=== PATIENT | female | born 1955 | race American Indian/Alaskan Native ===

== ENCOUNTER 2017-09-12 10:20 | Outpatient (CLI) | payer MEDICAID ==
--- NOTE | 2017-09-12 11:36 | XRay Report ---
BILATERAL ANKLES, 3 VIEWS History: Injury, pain. Findings: There is borderline osteopenia. No evidence for acute osseous injury, bone lesion or joint pathology. The soft tissues are unremarkable. Impression: Borderline osteopenia. No acute osseous injury identified.
== END 2017-09-12 10:21 | disposition home or self-care (01) ==
LOC: XRAY 10:20
PROVIDERS: ATTEND Podiatrist
DX: S99.911A Unspecified injury of right ankle, initial encounter (principal); X58.XXXA Exposure to other specified factors, initial encounter; Y93.89 Activity, other specified; Y92.89 Other specified places as the place of occurrence of the external cause; Y99.8 Other external cause status

== ENCOUNTER 2018-02-03 21:47 | Emergency (ER) | payer MEDICAID ==
[2018-02-03] MEDS ORDERED: NEURONTIN PO ONE (22:07)
[2018-02-03] MEDS ORDERED: DELTASONE PO ONE (22:07)
[2018-02-03] MEDS ORDERED: NORCO 5/325 PO ONE (22:08)
[2018-02-03] MEDS ORDERED: VALIUM PO ONE (22:08)
[2018-02-03 22:15] VITALS: BP 149/76
--- NOTE | 2018-02-03 22:21 | Emergency Department Report ---
ED General Adult HPI - General Chief complaint: Extremity Injury, Lower Stated complaint: LEG AND FEET PAIN Time Seen by Provider: 02/03/18 22:06 Source: patient Mode of arrival: Stretcher Limitations: No Limitations - History of Present Illness Initial comments: One week ago, patient had a mechanical fall while at home. She had no loss of consciousness and did not hit her head. Ever since, patient has had worsening pain in her bilateral lower back that radiates down into both legs. The pain is so bad that she can barely move. Patient normally uses a walker to get around. No incontinence symptoms. Not on blood thinners. - Related Data Home Medications Medication Instructions Recorded Confirmed Last Taken ALPRAZolam [Xanax TAB] 1 mg PO BID PRN 11/06/14 01/05/15 01/04/15 Acetaminophen/Codeine [Tylenol 1 tab PO Q12H PRN 11/06/14 01/05/15 01/04/15 /Codeine # 3 tab] Buspirone HCl [busPIRone] 15 mg PO BID 11/06/14 01/05/15 01/04/15 Cilostazol [Pletal] 100 mg PO BID 11/06/14 01/05/15 01/04/15 FLUoxetine [PROzac] 20 mg PO QDAY 11/06/14 01/05/15 01/04/15 Gemfibrozil [Lopid] 600 mg PO BID 11/06/14 01/05/15 01/04/15 Prednisone 10 mg PO DAILY 11/06/14 01/05/15 01/04/15 Trazodone HCl [traZODone] 150 mg PO QHS 11/06/14 01/05/15 01/04/15 predniSONE [Deltasone] 5 mg PO QDAY 11/06/14 01/05/15 01/04/15 Previous Rx's Medication Instructions Recorded Last Taken Type HYDROcodone/APAP 5-325 [Apison 1 each PO Q8H PRN #21 tablet 05/10/15 Unknown Rx 5/325] Gabapentin [Neurontin] 300 mg PO Q8HR #27 capsule 02/03/18 Unknown Rx Prednisone 10 mg PO DAILY #59 tab 02/03/18 Unknown Rx traMADol [Ultram 50 MG tab] 50 mg PO Q6HR PRN #6 tablet 08/07/18 Unknown Rx Allergies Allergy/AdvReac Type Severity Reaction Status Date / Time hydromorphone [From Dilaudid] Allergy Hives Verified 02/03/18 22:34 phenytoin sodium Allergy Hives Verified 10/29/14 14:05 [From Dilantin] phenytoin sodium extended Allergy Hives Verified 10/29/14 14:05 [From Dilantin] ED Review of Systems ROS: Stated complaint: LEG AND FEET PAIN Other details as noted in HPI Comment: All other systems reviewed and negative Constitutional: weakness Musculoskeletal: back pain, arthralgia, myalgia ED Past Medical Hx - Past Medical History Previous Medical History?: Yes Hx Hypertension: Yes Hx Arthritis: Yes (RA) Hx Asthma: Yes Additional medical history: 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 - Social History Smoking Status: Current Every Day Smoker Substance Use Type: None - Medications Home Medications: Home Medications Medication Instructions Recorded Confirmed Last Taken Type ALPRAZolam [Xanax TAB] 1 mg PO BID PRN 11/06/14 01/05/15 01/04/15 History Acetaminophen/Codeine [Tylenol 1 tab PO Q12H PRN 11/06/14 01/05/15 01/04/15 History /Codeine # 3 tab] Buspirone HCl [busPIRone] 15 mg PO BID 11/06/14 01/05/15 01/04/15 History Cilostazol [Pletal] 100 mg PO BID 11/06/14 01/05/15 01/04/15 History FLUoxetine [PROzac] 20 mg PO QDAY 11/06/14 01/05/15 01/04/15 History Gemfibrozil [Lopid] 600 mg PO BID 11/06/14 01/05/15 01/04/15 History Prednisone 10 mg PO DAILY 11/06/14 01/05/15 01/04/15 History Trazodone HCl [traZODone] 150 mg PO QHS 11/06/14 01/05/15 01/04/15 History predniSONE [Deltasone] 5 mg PO QDAY 11/06/14 01/05/15 01/04/15 History HYDROcodone/APAP 5-325 [Apison 1 each PO Q8H PRN #21 tablet 05/10/15 Unknown Rx 5/325] Gabapentin [Neurontin] 300 mg PO Q8HR #27 capsule 02/03/18 Unknown Rx Prednisone 10 mg PO DAILY #59 tab 02/03/18 Unknown Rx traMADol [Ultram 50 MG tab] 50 mg PO Q6HR PRN #6 tablet 02/03/18 Unknown Rx ED Physical Exam - General Limitations: No Limitations General appearance: alert, in no apparent distress - Head Head exam: Present: atraumatic, normocephalic - Eye Eye exam: Present: normal appearance - ENT ENT exam: Present: mucous membranes moist - Neck Neck exam: Present: normal inspection - Respiratory Respiratory exam: Present: normal lung sounds bilaterally. Absent: respiratory distress - Cardiovascular Cardiovascular Exam: Present: regular rate, normal rhythm. Absent: systolic murmur, diastolic murmur, rubs, gallop - GI/Abdominal GI/Abdominal exam: Present: soft, normal bowel sounds. Absent: distended, tenderness, guarding, rebound - Extremities Exam Extremities exam: Present: normal inspection, other (no saddle anesthesia. Gross bilateral LE strength 5/5. Bilateral feet are neurovasc intact. Ambulated into the room without help. Bilateral positive SLR test. ) - Back Exam Back exam: Present: normal inspection, other (diffuse midline and bilateral lumbar spinal tenderness) - Neurological Exam Neurological exam: Present: alert, oriented X3 - Psychiatric Psychiatric exam: Present: normal affect, normal mood - Skin Skin exam: Present: warm, dry, intact, normal color. Absent: rash ED Course Vital Signs 02/03/18 02/03/18 02/03/18 22:09 22:25 23:25 Temperature 98 F Pulse Rate 71 Respiratory 16 16 16 Rate Blood Pressure 149/76 Blood Pressure 149/76 [Right] O2 Sat by Pulse 97 Oximetry - Reevaluation(s) Reevaluation #1: CT shows no acute osseous process. There moderate disc degeneration in her spine. On re-eval, pt feels better. Will give her a referral to the [facility] for her chronic back pain. 02/04/18 00:41 ED Medical Decision Making - Medical Decision Making 60-year-old female with past medical history of rheumatoid arthritis that presents to the ER with subacute low back pain that is affecting both of her legs. Vital signs are stable. Patient is well-appearing. No appreciable neuro deficit and bilateral lower extremities. She is exhibiting no evidence of cauda equina at this time. CT of her lumbar spine was ordered to exclude fracture. Patient was given prednisone/Vicodin/Valium for pain control. Likely patient has suffered a lumbar back sprain with possible herniated disc that is contributing to bilateral sciatica. If the symptoms are improved on reevaluation, patient will be discharged with outpatient follow-up. - Differential Diagnosis fracture, disorientation, spinal cord stenosis, cauda equina, contusion Critical care attestation.: If time is entered above; I have spent that time in minutes in the direct care of this critically ill patient, excluding procedure time. ED Disposition Clinical Impression: Low back pain, Sciatica Disposition: TO HOME OR SELFCARE Is pt being admited?: No Does the pt Need Aspirin: No Condition: Stable Instructions: Lumbar Radiculopathy (ED) Additional Instructions: Please follow up with your family doctor or the [facility] in 3-5 days for re-evaluation of your back pain. You have also been referred to Dr. Jasso , orthopedics, who can discuss management options for your back. Prescriptions: Gabapentin [Neurontin] 300 mg PO Q8HR #27 capsule Prednisone 10 mg PO DAILY #59 tab traMADol [Ultram 50 MG tab] 50 mg PO Q6HR PRN #6 tablet PRN Reason: Pain Referrals: PRIMARY CAREMD [Referring] - 3-5 Days [facility] [Outside] - 3-5 Days DENNIS JASSO MD [Staff Physician] - 3-5 Days
--- NOTE | 2018-02-03 23:25 | Cat Scan Report ---
FINAL REPORT PROCEDURE: CT lumbar spine without contrast. TECHNIQUE: Computerized axial tomography of the lumbar spine was performed from T12 to the sacrum without contrast material. HISTORY: fall 1 week ago with midline back pain COMPARISON: No prior studies are available for comparison. FINDINGS: The lumbar vertebrae have normal height. There are no fractures. There is moderate disc space narrowing at L2-3. There is severe disc space narrowing at L4-5. There is some erosion and irregularity of the endplates at this level. There is grade 1 spondylolisthesis. There is severe osteoarthritis involving the facet joints. There is a moderate bony spinal canal stenosis. The L1-2, L3-4 and L5-S1 disc levels are unremarkable. There are no definite disc protrusions, although this is much better evaluated by MRI scanning. The paravertebral soft tissues are unremarkable. Incidental note is made of an enlarged, lobulated uterus which likely contains numerous leiomyomas. IMPRESSION: Fairly severe degenerative disease as described. Probable uterine leiomyomas.
== END 2018-02-04 00:56 | disposition home or self-care (01) ==
LOC: ED 21:47
DX: M54.40 Lumbago with sciatica, unspecified side (principal); I10 Essential (primary) hypertension; M19.90 Unspecified osteoarthritis, unspecified site; J45.909 Unspecified asthma, uncomplicated; F17.200 Nicotine dependence, unspecified, uncomplicated; Z88.8 Allergy status to other drugs, medicaments and biological substances; Z98.51 Tubal ligation status; W19.XXXA Unspecified fall, initial encounter; Y93.89 Activity, other specified; Y99.8 Other external cause status; Y92.019 Unspecified place in single-family (private) house as the place of occurrence of the external cause
CPT/HCPCS: 72131; 99283; J7512

== ENCOUNTER 2019-12-27 20:55 | Emergency (ER) | payer MEDICAID ==
--- NOTE | 2019-12-27 21:42 | Event Note ---
ED Screening Note Date of service: 12/27/19 Time: 21:41 ED Screening Note: Pt complains of right ankle pain she denies any injury or hx of gout hx of rheumatoid arthritis This initial assessment/diagnostic orders/clinical plan/treatment(s) is/are subject to change based on patients health status, clinical progression and re- assessment by fellow clinical providers in the ED. Further treatment and workup at subsequent clinical providers discretion. Patient/guardian urged not to elope from the ED as their condition may be serious if not clinically assessed and managed. Initial orders include: XR
--- NOTE | 2019-12-27 22:31 | XRay Report ---
RIGHT ANKLE 3 VIEWS 2205 INDICATION: pain, no injury COMPARISON: None available. FINDINGS: Mild diffuse soft tissue swelling is seen. No fractures or dislocations are noted. Signer Name: Bud Eaton MD Signed: 12/27/2019 10:26 PM Workstation Name: [id number]
--- NOTE | 2019-12-27 22:57 | Emergency Department Report ---
ED Lower Extremity HPI - General Chief Complaint: Extremity Injury, Lower Stated Complaint: RT ANKLE PAIN Time Seen by Provider: 12/27/19 21:39 Source: patient Mode of arrival: Ambulatory Limitations: Physical Limitation - History of Present Illness Initial Comments: 64-year-old -Italian female presents to the emergency room for sharp pain to the right ankle. Patient states when she walks he feels like her ankles is going to the other way. Patient states is very painful. 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 Patient does admit that she drinks beer and has been eating beef. MD Complaint: ankle injury Onset/Timin -: days(s) Injury: Ankle: Right (Pain with walking and touching) Severity: moderate Improves With: nothing Worsens With: weight bearing, movement, palpation Associated Symptoms: able to partially bear weight - Related Data Home Medications Medication Instructions Recorded Confirmed Last Taken Cholecalciferol (Vitd3)/Vit K2 [D3 1 tab PO DAILY 06/20/18 09/08/19 08/11/18 09:00 + K2 Dots 1,000 Units Tab] DULoxetine [Cymbalta] 60 mg PO BID 09/08/19 09/08/19 Unknown HYDROcodone/APAP 7.5-325 [Villas 1 tab PO TID PRN 09/08/19 09/08/19 Unknown 7.5-325 mg TAB] Omeprazole 40 mg PO DAILY 09/08/19 09/08/19 Unknown hydroCHLOROthiazide 25 mg PO DAILY 09/08/19 09/08/19 Unknown [Hydrochlorothiazide] tiZANidine [Zanaflex 4mg TAB] 4 mg PO QHS 09/08/19 09/08/19 Unknown Previous Rx's Medication Instructions Recorded Last Taken Type Amlodipine Besylate [Norvasc] 1 tab PO DAILY #30 tablet 06/22/18 08/11/18 09:00 Rx Allergies Allergy/AdvReac Type Severity Reaction Status Date / Time hydromorphone [From Dilaudid] Allergy Hives Verified 11/03/18 18:18 phenytoin sodium Allergy Hives Verified 11/03/18 18:18 [From Dilantin] phenytoin sodium extended Allergy Hives Verified 11/03/18 18:18 [From Dilantin] ED Review of Systems ROS: Stated complaint: RT ANKLE PAIN Other details as noted in HPI Comment: All other systems reviewed and negative ED Past Medical Hx - Past Medical History Previous Medical History?: Yes Hx Hypertension: Yes Hx Congestive Heart Failure: No Hx Diabetes: No Hx Liver Disease: Yes (HEP C) Hx Arthritis: Yes (RA) Hx Seizures: No (Has AR MANAGER shunt 1998. 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 AR MANAGER shunt - Surgical History Past Surgical History?: Yes Additional Surgical History: Tubal ligation. AR MANAGER shunt - Social History Smoking Status: Current Every Day Smoker Substance Use Type: Alcohol - Medications Home Medications: Home Medications Medication Instructions Recorded Confirmed Last Taken Type Cholecalciferol (Vitd3)/Vit K2 [D3 1 tab PO DAILY 06/20/18 09/08/19 08/11/18 09:00 History + K2 Dots 1,000 Units Tab] Amlodipine Besylate [Norvasc] 1 tab PO DAILY #30 tablet 06/22/18 09/08/19 08/11/18 09:00 Rx DULoxetine [Cymbalta] 60 mg PO BID 09/08/19 09/08/19 Unknown History HYDROcodone/APAP 7.5-325 [Villas 1 tab PO TID PRN 09/08/19 09/08/19 Unknown History 7.5-325 mg TAB] Omeprazole 40 mg PO DAILY 09/08/19 09/08/19 Unknown History hydroCHLOROthiazide 25 mg PO DAILY 09/08/19 09/08/19 Unknown History [Hydrochlorothiazide] tiZANidine [Zanaflex 4mg TAB] 4 mg PO QHS 09/08/19 09/08/19 Unknown History ED Physical Exam - General Limitations: Physical Limitation General appearance: alert - Head Head exam: Present: atraumatic - Eye Eye exam: Present: normal appearance - ENT ENT exam: Present: mucous membranes moist - Neck Neck exam: Present: full ROM - Expanded Lower Extremity Exam Right Ankle exam: Present: full ROM, tenderness, swelling Foot/Toe exam: Present: tenderness, swelling Neuro vascular tendon exam: Present: no vascular compromise - Neurological Exam Neurological exam: Present: alert - Psychiatric Psychiatric exam: Present: normal affect, normal mood - Skin Skin exam: Present: warm, dry, intact, normal color. Absent: rash ED Course Vital Signs 12/27/19 23:46 Respiratory 18 Rate ED Lower Extremity MDM - Radiology Data Radiology results: report reviewed Referring Physician:MADDIE PETTITPatient Name:CASSIE VAZQUEZPatient ID:[id number] of :[id number]:FemaleAccession:[id number] Date:2019Report Status:Finalized Findings [address] [address] XRay Report Signed Patient: CASSIE VAZQUEZ MR#: [id number] : 1955 Acct:[id number] Age/Sex: 64 / F ADM Date: 12/27/19 Loc: ED Attending Dr: Ordering Physician: MADDIE PETTIT Date of Service: 12/27/19 Procedure(s): XR ankle 3+V RT Accession Number(s): [id number] cc: MADDIE PETTIT Fluoro Time In Minutes: RIGHT ANKLE 3 VIEWS 2205 INDICATION: pain, no injury COMPARISON: None available. FINDINGS: Mild diffuse soft tissue swelling is seen. No fractures or dislocations are noted. Signer Name: Bud Eaton MD Signed: 12/27/2019 10:26 PM Workstation Name: [id number] Transcribed By: GJ Dictated By: Bud Eaton MD Electronically Authenticated By: Bud Eaton MD Signed Date/Time: 12/27/192225 DD/ 25 TD/TT: Referring Physician:JAVIER SHERIFFPatient Name:CASSIE VAZQUEZPatient ID:[id number] of :[id number]:FemaleAccession:[id number] Date:1687-99-68Wmitro Status:Finalized Findings [address] [address] Vascular Lab Report Signed Patient: CASSIE VAZQUEZ MR#: [id number] : 1955 Acct:[id number] Age/Sex: 64 / F ADM Date: 12/27/19 Loc: ED Attending Dr: Ordering Physician: LISA ROLLE Date of Service: 12/27/19 Procedure(s): VL venous duplex LE RT Accession Number(s): [id number] cc: LISA ROLLE DUPLEX DOPPLER LOWER EXTREMITY VEINS, RIGHT INDICATION / CLINICAL INFORMATION: Pain swelling no pulse. TECHNIQUE: Duplex doppler imaging was performed through the veins of the right lower extremity using venous compression and other maneuvers. COMPARISON: None available. FINDINGS: RIGHT COMMON FEMORAL VEIN: Negative. RIGHT FEMORAL VEIN: Negative. RIGHT POPLITEAL VEIN: Negative. RIGHT CALF VEINS: Negative. ADDITIONAL FINDINGS: None. IMPRESSION: 1. No sonographic evidence for DVT in the right lower extremity. Signer Name: Jesse Thomas MD Signed: 12/28/2019 1:09 AM Workstation Name: [id number] Transcribed By: JOHN Dictated By: Jesse Thomas MD Electronically Authenticated By: Jesse Thomas MD Signed Date/Time: 12/28/19108 DD/ 8 TD/TT: - Medical Decision Making 64-year-old -Italian female presents to the emergency room for sharp pain to the right ankle. Patient states when she walks he feels like her ankles is going to the other way. Patient states is very painful. 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 Patient does admit that she drinks beer and has been eating beef. Dopplers are negative for any DVTs. Ankle-brachial index shows that she has moderate amount of arterial disease. Discussed with patient smoking for the last 51 years increases her chances of having arterial disease in her lower extremities as well as peripheral vascular disease. I discussed with patient that she needs to stop smoking increase her fluids. Patient is to follow-up with her primary care provider. Patient was given ibuprofen which is helped. Patient can take take Tylenol or ibuprofen for pain management. Critical care attestation.: If time is entered above; I have spent that time in minutes in the direct care of this critically ill patient, excluding procedure time. ED Disposition Clinical Impression: PAD (peripheral artery disease), Tobacco abuse, Chronic toe pain, right foot Disposition: DC-01 TO HOME OR SELFCARE Is pt being admited?: No Does the pt Need Aspirin: No Condition: Stable Additional Instructions: Stop smoking take Tylenol or ibuprofen as needed for pain management. Follow-up with your primary care provider. Referrals: PRIMARY CARE, [Primary Care Provider] - 3-5 Days
[2019-12-27] MEDS ORDERED: IBUPROFEN 600 MG TAB PO ONE (23:29)
--- NOTE | 2019-12-28 01:13 | Vascular Lab Report ---
DUPLEX DOPPLER LOWER EXTREMITY VEINS, RIGHT INDICATION / CLINICAL INFORMATION: Pain swelling no pulse. TECHNIQUE: Duplex doppler imaging was performed through the veins of the right lower extremity using venous comp ression and other maneuvers. COMPARISON: None available. FINDINGS: RIGHT COMMON FEMORAL VEIN: Negative. RIGHT FEMORAL VEIN: Negative. RIGHT POPLITEAL VEIN: Negative. RIGHT CALF VEINS: Negative. ADDITIONAL FINDINGS: None. IMPRESSION: 1. No sonographic evidence for DVT in the right lower extremity. Signer Name: Jesse Thomas MD Signed: 12/28/2019 1:09 AM Workstation Name: [email or web address]
[2019-12-28 02:37] VITALS: BP 98/57
== END 2019-12-28 02:46 | disposition home or self-care (01) ==
LOC: ED 20:55
DX: I73.89 Other specified peripheral vascular diseases (principal); M79.671 Pain in right foot; M79.674 Pain in right toe(s); G89.29 Other chronic pain; F19.10 Other psychoactive substance abuse, uncomplicated

== ENCOUNTER 2020-03-31 17:00 | Emergency (ER) | payer MEDICAID ==
--- NOTE | 2020-03-31 18:39 | Emergency Department Report ---
ED Psych HPI - General Chief Complaint: Psych Stated Complaint: PSYCH EVAL Time Seen by Provider: 03/31/20 18:33 Source: family, police, EMS Mode of arrival: Stretcher Limitations: No Limitations - History of Present Illness Initial Comments: Is a 64-year-old female that presents emergency room with complaints of agitation, bizarre behavior. Patient at this time is answering questions properly and is calm. Patient denies suicidal homicidal ideation. Patient denies being destructive to the property or having bizarre behavior. Patient was brought in by EMS. EMS states that the police were called to the family's residence since the patient was acting bizarre and destroying property. The police then decided to have the patient to have a mental health evaluation. The police then called EMS to transfer the patient to the hospital. Report received from EMS. Patient denies recent travel. Patient denies recent international travel. Patient denies exposure to the novel coronavirus. Patient denies sick contacts. Patient denies fever and chills. Patient denies cough. Patient denies diarrhea. Patient denies coming in contact with anybody with symptoms of the novel coronavirus. History of same: No Quality: resolved prior to arrival Improves With: none Worsens With: none Associated Symptoms: denies: confusion, headache, shortness of breath, nausea, vomiting, syncope, insomnia Treatments Prior to Arrival: placed on mental he - Related Data Home Medications Medication Instructions Recorded Confirmed Last Taken Cholecalciferol (Vitd3)/Vit K2 [D3 1 tab PO DAILY 06/20/18 01/11/20 01/11/20 + K2 Dots 1,000 Units Tab] DULoxetine [Cymbalta] 60 mg PO BID 09/08/19 01/11/20 01/11/20 Omeprazole 40 mg PO DAILY 09/08/19 01/11/20 Unknown hydroCHLOROthiazide 25 mg PO DAILY 09/08/19 01/11/20 01/10/20 [Hydrochlorothiazide] tiZANidine [Zanaflex 4mg TAB] 4 mg PO QHS 09/08/19 01/11/20 01/10/20 Previous Rx's Medication Instructions Recorded Last Taken Type Amlodipine Besylate [Norvasc] 1 tab PO DAILY #30 tablet 06/22/18 01/10/20 Rx HYDROcodone/APAP 7.5-325 [[place] 1 tab PO TID PRN #20 01/14/20 Unknown Rx 7.5-325 mg TAB] Potassium Chloride [K-Dur] 20 meq PO DAILY 30 Days #30 tab 03/31/20 Unknown Rx Allergies Allergy/AdvReac Type Severity Reaction Status Date / Time hydromorphone [From Dilaudid] Allergy Hives Verified 01/10/20 14:28 phenytoin sodium Allergy Hives Verified 01/10/20 14:28 [From Dilantin] phenytoin sodium extended Allergy Hives Verified 01/10/20 14:28 [From Dilantin] ED Review of Systems ROS: Stated complaint: PSYCH EVAL Other details as noted in HPI Constitutional: denies: chills, fever Eyes: denies: eye pain, eye discharge, vision change ENT: denies: ear pain, throat pain Respiratory: denies: cough, shortness of breath, wheezing Cardiovascular: denies: chest pain, palpitations Endocrine: no symptoms reported Gastrointestinal: denies: abdominal pain, nausea, diarrhea Genitourinary: denies: urgency, dysuria, discharge Musculoskeletal: denies: back pain, joint swelling, arthralgia Skin: denies: rash, lesions Neurological: denies: headache, weakness, paresthesias Psychiatric: as per HPI. denies: anxiety, depression Hematological/Lymphatic: denies: easy bleeding, easy bruising ED Past Medical Hx - Past Medical History Previous Medical History?: Yes Hx Hypertension: Yes Hx Congestive Heart Failure: No Hx Diabetes: No Hx Deep Vein Thrombosis: No Hx Liver Disease: Yes (HEP C) Hx Arthritis: Yes (RA) Hx Seizures: No (Has [employer]NAGER shunt 1998. 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 [employer] MANAGER shunt - Surgical History Past Surgical History?: Yes Hx Coronary Stent: Yes Hx Pacemaker: No Hx Internal Defibrillator: No Additional Surgical History: Tubal ligation. [employer]NAGER shunt - Family History Family history: no significant - Social History Smoking Status: Current Every Day Smoker Substance Use Type: None - Medications Home Medications: Home Medications Medication Instructions Recorded Confirmed Last Taken Type Cholecalciferol (Vitd3)/Vit K2 [D3 1 tab PO DAILY 06/20/18 01/11/20 01/11/20 History + K2 Dots 1,000 Units Tab] Amlodipine Besylate [Norvasc] 1 tab PO DAILY #30 tablet 06/22/18 01/11/20 01/10/20 Rx DULoxetine [Cymbalta] 60 mg PO BID 09/08/19 01/11/20 01/11/20 History Omeprazole 40 mg PO DAILY 09/08/19 01/11/20 Unknown History hydroCHLOROthiazide 25 mg PO DAILY 09/08/19 01/11/20 01/10/20 History [Hydrochlorothiazide] tiZANidine [Zanaflex 4mg TAB] 4 mg PO QHS 09/08/19 01/11/20 01/10/20 History HYDROcodone/APAP 7.5-325 [[place] 1 tab PO TID PRN #20 01/14/20 Unknown Rx 7.5-325 mg TAB] Potassium Chloride [K-Dur] 20 meq PO DAILY 30 Days #30 tab 03/31/20 Unknown Rx ED Physical Exam - General Limitations: No Limitations General appearance: alert, in no apparent distress - Head Head exam: Present: atraumatic, normocephalic - Eye Eye exam: Present: normal appearance - ENT ENT exam: Present: mucous membranes moist - Neck Neck exam: Present: normal inspection - Respiratory Respiratory exam: Present: normal lung sounds bilaterally. Absent: respiratory distress - Cardiovascular Cardiovascular Exam: Present: regular rate, normal rhythm. Absent: systolic murmur, diastolic murmur, rubs, gallop - GI/Abdominal GI/Abdominal exam: Present: soft, normal bowel sounds - Extremities Exam Extremities exam: Present: normal inspection - Back Exam Back exam: Present: normal inspection - Neurological Exam Neurological exam: Present: alert, oriented X3 - Psychiatric Psychiatric exam: Present: normal affect, normal mood - Skin Skin exam: Present: warm, dry, intact, normal color. Absent: rash ED Course Vital Signs 03/31/20 03/31/20 03/31/20 17:46 20:00 20:25 Temperature 96.8 F L 97.9 F Pulse Rate 100 H 60 Respiratory 18 16 18 Rate Blood Pressure 123/74 Blood Pressure 115/75 [Right] O2 Sat by Pulse 96 99 Oximetry - Reevaluation(s) Reevaluation #1: Patient placed on ER hold. Patient will be evaluated by our mental health. Pat ient will have labs. Patient answering all questions appropriately. Patient is pleasant. Patient agrees to stay in the ER for medical evaluation. 03/31/20 18:40 Reevaluation #2: Patient is stable. Patient remains pleasant. Patient has not had any behavioral issues in the ER. Will be evaluated by mental health. 03/31/20 20:01 Reevaluation #3: CT is negative. Patient is now medically cleared. Patient will remain in the ER until the patient is fully evaluated by mental health. Patient's final disposition will come from our mental health psychiatry team. 03/31/20 22:12 Reevaluation #4: Patient has been cleared from a psychiatric standpoint by the mental health team. Patient is stable for discharge. Patient be discharged home. Patient has been pleasant the entire time in ER. Patient has not had any agitation or altered mental status in the ER. Patient will be discharged home. I discussed all results and clinical findings with patient. I discussed plan of care with patient. Patient agrees with plan of care. Patient is stable for discharge. Patient will be discharged home. Patient given discharge instructions. Patient voiced understanding of discharge instructions. 03/31/20 23:42 ED Medical Decision Making - Lab Data Result diagrams: 03/31/20 18:15 03/31/20 18:15 - Radiology Data Radiology results: report reviewed CT head/brain wo con INDICATION / CLINICAL INFORMATION: 64 years Female; AMS. TECHNIQUE: Routine CT head without contrast. All CT scans at this location are performed using CT dose reduction for ALARA by means of automated exposure control. COMPARISON: The study is compared to the previous CT of 06/20/2018. FINDINGS: BRAIN / INTRACRANIAL CONTENTS: The patient remains status post right frontotemporal craniotomy with aneurysm clips in the region of the right MCA trifurcation. There is notable resulting streak artifact and the findings correlate with the previous CT. The left frontal ventricular shunt remains in place with the distal tip projected within the left frontal horn. The ventricular system remains decompressed there also appears correlate with the prior exam. There is also component of motion artifact. 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 However, this finding does appear to developed from the previous CT and correlation would be needed. There is no clear CT evidence of acute intracranial hemorrhage or developing mass effect. ORBITS: No significant abnormality of visualized orbits. SINUSES / MASTOIDS: No significant abnormality in the visualized paranasal sinuses or mastoid air cells. CRANIOCERVICAL JUNCTION: No significant abnormality. ADDITIONAL FINDINGS: None. IMPRESSION: 1. The left frontal ventricular shunt remains in place with continued decompression of the ventricular system. 2. There is persistent right frontotemporal craniotomy with aneurysm clip the region of the right MCA trifurcation. 3. 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 However, this finding appears to developed from the previous CT of 06/20/2018 and correlation would be needed. 4. There is no CT evidence of acute intracranial hemorrhage. - Medical Decision Making Patient is a 64-year-old female that presents emergency room for a mental health evaluation. Patient was brought in by EMS and sent here by the police. EMS states that the patient had bizarre and erratic behavior and was destroying the family's property. Patient has been pleasant and has not had any behavioral issues in the ER. Patient has had normal mentation since being in the ER. Patient denies any psychiatric problems. Patient denies depression. Patient denies hallucinations. Patient denies suicidal homicidal ideation. Patient had labs done. Patient's labs exacerbate dehydration and hypokalemia. Patient had a head CT which was negative. Patient is stable to be discharged from a psychiatric and medical standpoint. Patient was cleared by our mental health team. Patient is medically cleared in the ER. Patient not require any inpatient psychiatric or inpatient medical services. Patient does not require further emergency medical services. Patient will be discharged home. - Differential Diagnosis Altered mental status, agitation, behavioral issues, electrolyte imbalance Critical care attestation.: If time is entered above; I have spent that time in minutes in the direct care of this critically ill patient, excluding procedure time. ED Disposition Clinical Impression: Agitation, Hypokalemia Altered mental state Qualifiers: Altered mental status type: unspecified Qualified Code(s): R41.82 - Altered mental status, unspecified Disposition: DC-01 TO HOME OR SELFCARE Is pt being admited?: No Does the pt Need Aspirin: No Condition: Stable Instructions: Altered Mental Status (ED), Hypokalemia (ED) Additional Instructions: Patient to follow-up with primary care in 2 to 3 days. Patient to follow-up with psychiatrist in 2 to 3 days. Patient to rest. Patient to increase water. . Patient to take Tylenol or ibuprofen as needed for pain. Patient continue previous medications.. Patient to return to the ER if condition worsens, changes or new symptoms arise. Patient will need her chemistry recheck in 2 to 3 days by her primary care. OUTPATIENT MENTAL HEALTH RESOURCES [facility], [facility] Vonda Johnston MD: [address] [facility] [address] [place] [address] [place] [address] [facility]: [employer] [address] [place] [address] [place] [address] [phone] [facility]: [address] [facility] [address] [facility] [place] [address] [facility] [address] [facility]: Maverick Knight MD: [address] [facility] [address] [facility] [id number] [facility]: [address], [place] [id number] [phone] [place] CRISIS AND ACCESS LINE: Prescriptions: Potassium Chloride [K-Dur] 20 meq PO DAILY 30 Days #30 tab Referrals: PRIMARY CAREMD [Primary Care Provider] - 2-3 Days Time of Disposition: 23:46
[2020-03-31 18:45] LABS: Hematocrit 36.4 % (30.3-42.9); Hemoglobin 11.3 gm/dl (10.1-14.3); Mean Corpuscular HGB Conc 31 % (30-34); Mean Corpuscular Volume 80 fl (79-97); Platelet Count 290 K/mm3 (140-440); Red Blood Count 4.57 M/mm3 (3.65-5.03)
[2020-03-31 18:53] LABS: Blood Urea Nitrogen 19 mg/dL (7-17); Calcium 9.2 mg/dL (8.4-10.2); Hemolysis Index 13
[2020-03-31 18:54] LABS: BUN/Creatinine Ratio 27
[2020-03-31 20:03] LABS: Anisocytosis 3+; Basophils % (Manual) 0 % (0.0-1.8); Hypochromasia 1+; Total Cells Counted 100
[2020-03-31 20:08] LABS: Poikilocytosis 1+
[2020-03-31 20:09] LABS: Burr Cells Rare; Large Platelets Rare; Platelet Estimate Consistent w Auto; Tear Drop Cells Rare
[2020-03-31] MEDS ORDERED: ACETAMINOPHEN 500 MG TAB ONE (20:23)
[2020-03-31] MEDS ORDERED: ACETAMINOPHEN 500 MG TAB PO ONE (20:24)
[2020-03-31 20:35] VITALS: BP 115/75
[2020-03-31 21:47] LABS: Bilirubin,Urine NEG (Negative); Blood,Urine NEG (Negative); Color,Urine Yellow (Yellow); Mucus,Urine FEW /HPF; Protein,Urine <15 mg/dL mg/dL (Negative); WBC,Urine < 1.0 /HPF (0.0-6.0)
[2020-03-31 21:49] LABS: Amphetamine Screen,Urine PRESUMPTIVE NEGATIVE; Benzodiazepines Screen,Urine PRESUMPTIVE NEGATIVE; Cannabinoid Screen,Urine PRESUMPTIVE NEGATIVE; Cocaine Screen,Urine PRESUMPTIVE NEGATIVE; Methadone Screen,Urine PRESUMPTIVE NEGATIVE; Opiate Screen,Urine PRESUMPTIVE NEGATIVE
--- NOTE | 2020-03-31 22:14 | Cat Scan Report ---
CT head/brain wo con INDICATION / CLINICAL INFORMATION: 64 years Female; AMS. TECHNIQUE: Routine CT head without contrast. All CT scans at this location are performed using CT dos e reduction for ALARA by means of automated exposure control. COMPARISON: The study is compared to the previous CT of 06/20/2018. FINDINGS: BRAIN / INTRACRANIAL CONTENTS: The patient remains status post right frontotemporal craniotomy with a neurysm clips in the region of the right MCA trifurcation. There is notable resulting streak artifact and the findings correlate with the previous CT. The left frontal ventricular shunt remains in place with the distal tip projected within the left fro ntal horn. The ventricular system remains decompressed there also appears correlate with the prior ex am. There is also component of motion artifact. However, there appears be mild cerebral white matter dise ase most consistent with microvascular angiopathy. 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 However, this finding does appea r to developed from the previous CT and correlation would be needed. There is no clear CT evidence of acute intracranial hemorrhage or developing mass effect. ORBITS: No significant abnormality of visualized orbits. SINUSES / MASTOIDS: No significant abnormality in the visualized paranasal sinuses or mastoid air nayely ls. CRANIOCERVICAL JUNCTION: No significant abnormality. ADDITIONAL FINDINGS: None. IMPRESSION: 1. The left frontal ventricular shunt remains in place with continued decompression of the ventricula r system. 2. There is persistent right frontotemporal craniotomy with aneurysm clip the region of the right MCA trifurcation. 3. 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 However, this finding appears to developed from the previous CT of 06/20/2018 and corre lation would be needed. 4. There is no CT evidence of acute intracranial hemorrhage. Signer Name: Bonilla Cohen MD Signed: 03/31/2020 10:09 PM Workstation Name: [id number]
== END 2020-04-01 00:25 | disposition home or self-care (01) ==
LOC: ED 17:00
DX: E87.6 Hypokalemia (principal); R41.82 Altered mental status, unspecified; R45.1 Restlessness and agitation; I10 Essential (primary) hypertension; J44.9 Chronic obstructive pulmonary disease, unspecified; M19.90 Unspecified osteoarthritis, unspecified site; F17.200 Nicotine dependence, unspecified, uncomplicated; Z98.51 Tubal ligation status; Z95.5 Presence of coronary angioplasty implant and graft; Z88.8 Allergy status to other drugs, medicaments and biological substances; Z79.899 Other long term (current) drug therapy
CPT/HCPCS: 36415; 70450; 80048; 80307; 80320; 81001; 85007; 85025; G0480

== ENCOUNTER 2021-03-03 15:27 | Emergency (ER) | payer MEDICAID ==
[2021-03-03 15:40] VITALS: BP 109/62
--- NOTE | 2021-03-03 16:15 | Emergency Department Report ---
ED General Adult HPI - General Chief complaint: Pain General Stated complaint: BILATERAL KNEE PAIN Time Seen by Provider: 03/03/21 15:48 Source: patient, EMS Mode of arrival: Wheelchair Limitations: Physical Limitation - History of Present Illness Initial comments: 65-year-old -[place]ad[place] female presents to the emergency room stating that she has generalized pain in her back and lower legs. Patient reports that she has a history of rheumatoid arthritis and chronic pain and is followed by pain management provider. Patient states that she is ran out of her pain medication. Patient denies any recent injuries. Denies any urinary or bowel incontinence denies any IV use no recent back procedure. He is a chronic smoker. Has a history of medication overdose. Onset/Timin -: days(s) Location: back, lower extremity Severity scale (0 -10): 9 Quality: aching, sharp Consistency: intermittent Improves with: none Worsens with: none Associated Symptoms: denies other symptoms Treatments Prior to Arrival: none - Related Data Home Medications Medication Instructions Recorded Confirmed Last Taken Cholecalciferol (Vitd3)/Vit K2 [D3 1 tab PO DAILY 06/20/18 01/11/20 01/11/20 + K2 Dots 1,000 Units Tab] DULoxetine [Cymbalta] 60 mg PO BID 09/08/19 01/11/20 01/11/20 Omeprazole 40 mg PO DAILY 09/08/19 01/11/20 Unknown hydroCHLOROthiazide 25 mg PO DAILY 09/08/19 01/11/20 01/10/20 [Hydrochlorothiazide] tiZANidine [Zanaflex 4mg TAB] 4 mg PO QHS 09/08/19 01/11/20 01/10/20 Previous Rx's Medication Instructions Recorded Last Taken Type Amlodipine Besylate [Norvasc] 1 tab PO DAILY #30 tablet 06/22/18 01/10/20 Rx HYDROcodone/APAP 7.5-325 [[place] 1 tab PO TID PRN #20 01/14/20 Unknown Rx 7.5-325 mg TAB] Potassium Chloride [K-Dur] 20 meq PO DAILY 30 Days #30 tab 03/31/20 Unknown Rx Naproxen 375 mg PO BID PRN #20 tablet. 03/03/21 Unknown Rx traMADoL [Ultram 50 MG tab] 50 mg PO Q6HR PRN #12 tablet 03/03/21 Unknown Rx Allergies Allergy/AdvReac Type Severity Reaction Status Date / Time phenytoin sodium Allergy Hives Verified 03/03/21 15:33 [From Dilantin] phenytoin sodium extended Allergy Hives Verified 03/03/21 15:33 [From Dilantin] ED Review of Systems ROS: Stated complaint: BILATERAL KNEE PAIN Other details as noted in HPI Comment: All other systems reviewed and negative ED Past Medical Hx - Past Medical History Hx Hypertension: Yes Hx Congestive Heart Failure: No Hx Diabetes: No Hx Deep Vein Thrombosis: No Hx Liver Disease: Yes (HEP C) Hx Arthritis: Yes (RA) Hx Seizures: No (Has [employer] shunt 1998. 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 [employer] shunt - Surgical History Hx Coronary Stent: Yes Hx Pacemaker: No Hx Internal Defibrillator: No Additional Surgical History: Tubal ligation. [employer] shunt - Social History Smoking Status: Current Every Day Smoker Substance Use Type: None - Medications Home Medications: Home Medications Medication Instructions Recorded Confirmed Last Taken Type Cholecalciferol (Vitd3)/Vit K2 [D3 1 tab PO DAILY 06/20/18 01/11/20 01/11/20 History + K2 Dots 1,000 Units Tab] Amlodipine Besylate [Norvasc] 1 tab PO DAILY #30 tablet 06/22/18 01/11/20 01/10/20 Rx DULoxetine [Cymbalta] 60 mg PO BID 09/08/19 01/11/20 01/11/20 History Omeprazole 40 mg PO DAILY 09/08/19 01/11/20 Unknown History hydroCHLOROthiazide 25 mg PO DAILY 09/08/19 01/11/20 01/10/20 History [Hydrochlorothiazide] tiZANidine [Zanaflex 4mg TAB] 4 mg PO QHS 09/08/19 01/11/20 01/10/20 History HYDROcodone/APAP 7.5-325 [[place] 1 tab PO TID PRN #20 01/14/20 Unknown Rx 7.5-325 mg TAB] Potassium Chloride [K-Dur] 20 meq PO DAILY 30 Days #30 tab 03/31/20 Unknown Rx Naproxen 375 mg PO BID PRN #20 tablet. 03/03/21 Unknown Rx traMADoL [Ultram 50 MG tab] 50 mg PO Q6HR PRN #12 tablet 03/03/21 Unknown Rx ED Physical Exam - General Limitations: Physical Limitation General appearance: alert, in no apparent distress - Head Head exam: Present: atraumatic, normocephalic - Eye Eye exam: Present: normal appearance - ENT ENT exam: Present: normal external ear exam - Neck Neck exam: Present: full ROM - Respiratory Respiratory exam: Present: normal lung sounds bilaterally. Absent: chest wall tenderness, accessory muscle use - Cardiovascular Cardiovascular Exam: Present: regular rate - Extremities Exam Extremities exam: Present: full ROM, tenderness, other (Bilateral heels are soft, ankles and feet are tender). Absent: pedal edema - Back Exam Back exam: Present: paraspinal tenderness - Neurological Exam Neurological exam: Present: alert, oriented X3 - Psychiatric Psychiatric exam: Present: normal affect, normal mood - Skin Skin exam: Present: warm, dry, intact, normal color. Absent: rash ED Course Vital Signs 03/03/21 15:38 Temperature 97.8 F Pulse Rate 77 Respiratory 18 Rate Blood Pressure 109/62 O2 Sat by Pulse 96 Oximetry ED Medical Decision Making - Medical Decision Making 65-year-old -[place] female presents to the emergency room stating that she has generalized pain in her back and lower legs. Patient reports that she has a history of rheumatoid arthritis and chronic pain and is followed by pain management provider. Patient states that she is ran out of her pain medication. Patient denies any recent injuries. Denies any urinary or bowel incontinence denies any IV use no recent back procedure. He is a chronic smoker. Has a history of medication overdose. Review of [employer]a awareness [employer] patient last received narcotics on 01/04/2021 for 30 days. Patient be given a prescription for naproxen and tramadol. Patient is referred back to her primary pain management provider. Critical care attestation.: If time is entered above; I have spent that time in minutes in the direct care of this critically ill patient, excluding procedure time. ED Disposition Clinical Impression: PAD (peripheral artery disease), Rheumatoid arthritis Disposition: HOME / SELF CARE / HOMELESS Is pt being admited?: No Does the pt Need Aspirin: No Condition: Stable Instructions: Peripheral Vascular Disease, [id number] Additional Instructions: Take medication as prescribed. Increase your fluid intake. Do not operate heavy machinery while taking tramadol. Prescriptions: Naproxen 375 mg PO BID PRN #20 tablet. PRN Reason: Pain , Severe (7-10) traMADoL [Ultram 50 MG tab] 50 mg PO Q6HR PRN #12 tablet PRN Reason: Pain Referrals: Your, pain management provider [Other] - 3-5 Days
== END 2021-03-03 16:32 | disposition home or self-care (01) ==
LOC: ED 15:27
DX: I73.9 Peripheral vascular disease, unspecified (principal); M06.9 Rheumatoid arthritis, unspecified; I10 Essential (primary) hypertension; B19.20 Unspecified viral hepatitis C without hepatic coma; R56.9 Unspecified convulsions; J45.909 Unspecified asthma, uncomplicated; Z98.890 Other specified postprocedural states; F17.200 Nicotine dependence, unspecified, uncomplicated; Z88.8 Allergy status to other drugs, medicaments and biological substances
CPT/HCPCS: 99283

== ENCOUNTER 2021-11-17 12:41 | Inpatient (IN) | payer MEDICAID ==
--- NOTE | 2021-11-17 13:30 | Emergency Department Report ---
ED Shortness of Breath HPI - General Chief Complaint: Dyspnea/Respdistress Stated Complaint: ROSALINDA Time Seen by Provider: 11/17/21 13:11 Source: patient, old records reviewed Mode of arrival: Ambulatory Limitations: No Limitations - History of Present Illness Initial Comments: 66-year-old female CAD, COPD (no home O2), PVD, hepatitis C, current daily smok er, LARRY OPERATOR shunt s/p aneurysm repair (1998) A. fib (on Eliquis), daily tobacco abuse, RA, HLD, CHF (EF 30-35%), HTN, GERD, and chronic pain presents to the hospital with sob since this am. Pt is drowsy but easily arousable. When she is awake she is complaining of constant b/l leg pain secondary to PAD and continue smoking. Pt is a very poor historian. She complains mild chest pain. Initial BP at beside during exam is 100/54 (significanlty different than the 190/155 documented by triage). 100% room air sat. As per previous medical record review patient was admitted here in August for acute encephalopathy, dehydration causing acute renal injury, hypotension, and anemia requiring blood transfusion. - Related Data Home Medications Medication Instructions Recorded Confirmed Last Taken ALBUTEROL NEB's [Proventil 0.083% 2.5 mg IH TID PRN 09/22/21 09/25/21 Unknown NEBS] Apixaban [Eliquis] 5 mg PO BID 09/22/21 09/25/21 Unknown Atorvastatin Calcium [Lipitor] 80 mg PO QHS 09/22/21 09/25/21 Unknown Gabapentin [Neurontin] 800 mg PO TID 09/22/21 09/25/21 Unknown Ipratropium/Albuterol Sulfate 1 ampul IH Q6HR PRN 09/22/21 09/25/21 Unknown [DUONEB *Not for PRN Use*] Pantoprazole Sodium 40 mg PO DAILY 09/22/21 09/25/21 Unknown carvediloL [Coreg] 3.125 mg PO BID 09/22/21 09/25/21 Unknown DULoxetine [Cymbalta] 30 mg PO QDAY 09/25/21 09/25/21 Unknown Lisinopril [Zestril TAB] 2.5 mg PO QDAY 09/25/21 09/25/21 Unknown Previous Rx's Medication Instructions Recorded Last Taken Type AtorvaSTATin [Lipitor] 40 mg PO QHS #30 tablet 09/27/21 Unknown Rx Clopidogrel [Plavix] 75 mg PO QDAY #30 09/27/21 Unknown Rx Isosorb Dinit/Hydralazine [Bidil 1 each PO Q8HR #90 tablet 09/27/21 Unknown Rx 20/37.5MG] Pantoprazole [Protonix TAB] 40 mg PO BIDAC tablet 09/27/21 Unknown Rx carvediloL [Coreg] 3.125 mg PO BID #60 tablet 09/27/21 Unknown Rx Allergies Allergy/AdvReac Type Severity Reaction Status Date / Time phenytoin sodium Allergy Hives Verified 09/25/21 13:32 [From Dilantin] phenytoin sodium extended Allergy Hives Verified 09/25/21 13:32 [From Dilantin] ED Review of Systems ROS: Stated complaint: ROSALINDA Other details as noted in HPI Comment: All other systems reviewed and negative ED Past Medical Hx - Past Medical History Previous Medical History?: Yes Hx Hypertension: Yes Hx Congestive Heart Failure: Yes Hx Diabetes: No Hx Deep Vein Thrombosis: No Hx Liver Disease: Yes (HEP C) Hx Arthritis: Yes Hx Seizures: No (Has LARRY OPERATOR shunt 1998. 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 LARRY OPERATOR shunt - Surgical History Past Surgical History?: Yes Hx Coronary Stent: Yes Hx Pacemaker: No Hx Internal Defibrillator: No Additional Surgical History: Tubal ligation. LARRY OPERATOR shunt - Social History Smoking Status: Current Every Day Smoker - Medications Home Medications: Home Medications Medication Instructions Recorded Confirmed Last Taken Type ALBUTEROL NEB's [Proventil 0.083% 2.5 mg IH TID PRN 09/22/21 09/25/21 Unknown History NEBS] Apixaban [Eliquis] 5 mg PO BID 09/22/21 09/25/21 Unknown History Atorvastatin Calcium [Lipitor] 80 mg PO QHS 09/22/21 09/25/21 Unknown History Gabapentin [Neurontin] 800 mg PO TID 09/22/21 09/25/21 Unknown History Ipratropium/Albuterol Sulfate 1 ampul IH Q6HR PRN 09/22/21 09/25/21 Unknown History [DUONEB *Not for PRN Use*] Pantoprazole Sodium 40 mg PO DAILY 09/22/21 09/25/21 Unknown History carvediloL [Coreg] 3.125 mg PO BID 09/22/21 09/25/21 Unknown History DULoxetine [Cymbalta] 30 mg PO QDAY 09/25/21 09/25/21 Unknown History Lisinopril [Zestril TAB] 2.5 mg PO QDAY 09/25/21 09/25/21 Unknown History AtorvaSTATin [Lipitor] 40 mg PO QHS #30 tablet 09/27/21 Unknown Rx Clopidogrel [Plavix] 75 mg PO QDAY #30 09/27/21 Unknown Rx Isosorb Dinit/Hydralazine [Bidil 1 each PO Q8HR #90 tablet 09/27/21 Unknown Rx 20/37.5MG] Pantoprazole [Protonix TAB] 40 mg PO BIDAC tablet 09/27/21 Unknown Rx carvediloL [Coreg] 3.125 mg PO BID #60 tablet 09/27/21 Unknown Rx ED Physical Exam - General Limitations: No Limitations - Other Other exam information: General: Drowsy but aroused Head: Atraumatic Eyes: normal appearance ENT: Moist mucous membranes Neck: Normal appearance, no midline tenderness Chest: Clear to auscultation bilaterally, no respiratory CV: regular rate and rhythm Abdomen: Soft, normal bowel sounds, nontender, nondistended, no rebound or guarding Rectal: Brown stool Back: Normal inspection Extremity: Patient has dark discoloration to bilateral soles with diffuse pain/tenderness on palpation in feet and lower extremities. Superficial left leg anterior ulceration out signs of infection. No leg asymmetry or edema. Pedal pulses identified with Doppler Neuro: drowsy but arousable no facial asymmetry, difficult to understand, no gross motor sensory deficit Skin: No rash ED Course Vital Signs 11/17/21 11/17/21 11/17/21 12:45 13:10 13:15 Temperature Pulse Rate 75 52 L 67 Respiratory 16 13 11 L Rate Blood Pressure 96/50 Blood Pressure 190/155 [Left] O2 Sat by Pulse 98 99 Oximetry 11/17/21 11/17/21 11/17/21 13:31 13:45 14:01 Temperature Pulse Rate 73 73 63 Respiratory 12 13 10 L Rate Blood Pressure 100/54 100/54 100/54 Blood Pressure [Left] O2 Sat by Pulse 98 100 98 Oximetry 11/17/21 11/17/21 11/17/21 14:10 14:15 14:31 Temperature 98.7 F Pulse Rate 63 64 Respiratory 10 L 13 Rate Blood Pressure 100/54 100/54 Blood Pressure [Left] O2 Sat by Pulse 100 99 Oximetry 11/17/21 11/17/21 11/17/21 14:45 15:01 15:15 Temperature Pulse Rate 66 68 65 Respiratory 14 12 14 Rate Blood Pressure 100/54 100/54 100/54 Blood Pressure [Left] O2 Sat by Pulse 100 99 97 Oximetry 11/17/21 11/17/21 11/17/21 15:31 15:45 16:01 Temperature Pulse Rate 66 67 68 Respiratory 11 L 14 13 Rate Blood Pressure 100/54 100/54 100/54 Blood Pressure [Left] O2 Sat by Pulse 100 97 96 Oximetry 11/17/21 11/17/21 11/17/21 16:15 16:31 16:53 Temperature Pulse Rate 69 69 Respiratory 17 14 Rate Blood Pressure 100/54 100/54 100/54 Blood Pressure [Left] O2 Sat by Pulse 95 96 100 Oximetry 11/17/21 11/17/21 17:01 17:15 Temperature Pulse Rate 66 72 Respiratory 10 L 12 Rate Blood Pressure 100/54 100/54 Blood Pressure [Left] O2 Sat by Pulse 99 100 Oximetry - Reevaluation(s) Reevaluation #1: 11/17/21 17:01 Patient now more alert and no longer screaming in pain. She does not recall me examining her earlier in her ED stay. She states she takes oxycodone 7.5 mg (unsure if the med is Percocet) and states she might of just taken 1 today patient states her son gives her her medications to make sure she does not take too much. She is now requesting for something to eat. She states her speech is at her baseline. - Consultations Consultation #1: 11/17/21 18:07 case d/w Dr Martinez with GI, will consult ED Medical Decision Making - Lab Data Result diagrams: 11/17/21 15:00 11/17/21 15:00 Lab Results 11/17/21 11/17/21 11/17/21 Range/Units 14:15 15:00 15:00 WBC 5.0 (4.5-11.0) K/mm3 RBC 2.60 L (3.65-5.03) M/mm3 Hgb 5.1 L* (10.1-14.3) gm/dl Hct 17.1 L* (30.3-42.9) % MCV 66 L (79-97) fl MCH 20 L (28-32) pg MCHC 30 (30-34) % RDW 18.2 H (13.2-15.2) % Plt Count 196 (140-440) K/mm3 Lymph % (Auto) 17.8 (13.4-35.0) % [place] % (Auto) 7.7 H (0.0-7.3) % Eos % (Auto) 2.5 (0.0-4.3) % Baso % (Auto) 1.0 (0.0-1.8) % Lymph # (Auto) 0.9 L (1.2-5.4) K/mm3 [place] # (Auto) 0.4 (0.0-0.8) K/mm3 Eos # (Auto) 0.1 (0.0-0.4) K/mm3 Baso # (Auto) 0.1 (0.0-0.1) K/mm3 Seg Neutrophils % 71.0 H (40.0-70.0) % Seg Neutrophils # 3.6 (1.8-7.7) K/mm3 PT 16.2 H (12.2-14.9) Sec. INR 1.16 H (0.87-1.13) APTT 29.7 (24.2-36.6) Sec. ABG pH 7.395 (7.350-7.450) pH Units ABG pCO2 44.1 mm Hg ABG pO2 72.3 L (80.0-90.0) mm Hg ABG HCO3 26.4 H (20.0-26.0) mmol/L ABG O2 Saturation 97.3 (95.0-99.0) % ABG O2 Content 5.2 (0.0-44) ABG Base Excess 1.5 (-2.0-3.0) mmol/L ABG Hemoglobin 5.0 L (12.0-16.0) gm/dl ABG Carboxyhemoglobin 7.6 H (0.0-5.0) % ABG Methemoglobin 0.3 (0.0-1.5) % Oxyhemoglobin 89.7 L (95.0-99.0) % FiO2 21 % Sodium (137-145) mmol/L Potassium (3.6-5.0) mmol/L Chloride (98-107) mmol/L Carbon Dioxide (22-30) mmol/L Anion Gap mmol/L BUN (7-17) mg/dL Creatinine (0.6-1.2) mg/dL Estimated GFR ml/min BUN/Creatinine Ratio % Glucose (65-100) mg/dL Calcium (8.4-10.2) mg/dL Magnesium (1.7-2.3) mg/dL Total Bilirubin (0.1-1.2) mg/dL AST (5-40) units/L ALT (7-56) units/L Alkaline Phosphatase (35-129) units/L Ammonia (25-60) umol/L Total Creatine Kinase (30-135) units/L CK-MB (CK-2) (0.0-4.0) ng/mL CK-MB (CK-2) Rel Index (0-4) Troponin T (0.00-0.029) ng/mL NT-Pro-B Natriuret Pep (0-900) pg/mL Total Protein (6.3-8.2) g/dL Albumin (3.9-5) g/dL Albumin/Globulin Ratio % Plasma/Serum Alcohol (0-0.07) % Blood Type Antibody Screen Crossmatch 11/17/21 11/17/21 11/17/21 Range/Units 15:00 15:00 15:00 WBC (4.5-11.0) K/mm3 RBC (3.65-5.03) M/mm3 Hgb (10.1-14.3) gm/dl Hct (30.3-42.9) % MCV (79-97) fl MCH (28-32) pg MCHC (30-34) % RDW (13.2-15.2) % Plt Count (140-440) K/mm3 Lymph % (Auto) (13.4-35.0) % [place] % (Auto) (0.0-7.3) % Eos % (Auto) (0.0-4.3) % Baso % (Auto) (0.0-1.8) % Lymph # (Auto) (1.2-5.4) K/mm3 [place] # (Auto) (0.0-0.8) K/mm3 Eos # (Auto) (0.0-0.4) K/mm3 Baso # (Auto) (0.0-0.1) K/mm3 Seg Neutrophils % (40.0-70.0) % Seg Neutrophils # (1.8-7.7) K/mm3 PT (12.2-14.9) Sec. INR (0.87-1.13) APTT (24.2-36.6) Sec. ABG pH (7.350-7.450) pH Units ABG pCO2 mm Hg ABG pO2 (80.0-90.0) mm Hg ABG HCO3 (20.0-26.0) mmol/L ABG O2 Saturation (95.0-99.0) % ABG O2 Content (0.0-44) ABG Base Excess (-2.0-3.0) mmol/L ABG Hemoglobin (12.0-16.0) gm/dl ABG Carboxyhemoglobin (0.0-5.0) % ABG Methemoglobin (0.0-1.5) % Oxyhemoglobin (95.0-99.0) % FiO2 % Sodium 141 (137-145) mmol/L Potassium 3.6 (3.6-5.0) mmol/L Chloride 104.3 (98-107) mmol/L Carbon Dioxide 24 (22-30) mmol/L Anion Gap 16 mmol/L BUN 18 H (7-17) mg/dL Creatinine 0.8 (0.6-1.2) mg/dL Estimated GFR > 60 ml/min BUN/Creatinine Ratio 23 % Glucose 100 (65-100) mg/dL Calcium 9.1 (8.4-10.2) mg/dL Magnesium 2.10 (1.7-2.3) mg/dL Total Bilirubin 0.30 (0.1-1.2) mg/dL AST 16 (5-40) units/L ALT 9 (7-56) units/L Alkaline Phosphatase 77 (35-129) units/L Ammonia 25.0 (25-60) umol/L Total Creatine Kinase (30-135) units/L CK-MB (CK-2) (0.0-4.0) ng/mL CK-MB (CK-2) Rel Index (0-4) Troponin T (0.00-0.029) ng/mL NT-Pro-B Natriuret Pep 1173 H (0-900) pg/mL Total Protein 6.7 (6.3-8.2) g/dL Albumin 4.4 (3.9-5) g/dL Albumin/Globulin Ratio 1.9 % Plasma/Serum Alcohol (0-0.07) % Blood Type A POSITIVE Antibody Screen Positive Crossmatch See Detail 11/17/21 11/17/21 Range/Units 15:00 15:00 WBC (4.5-11.0) K/mm3 RBC (3.65-5.03) M/mm3 Hgb (10.1-14.3) gm/dl Hct (30.3-42.9) % MCV (79-97) fl MCH (28-32) pg MCHC (30-34) % RDW (13.2-15.2) % Plt Count (140-440) K/mm3 Lymph % (Auto) (13.4-35.0) % [place] % (Auto) (0.0-7.3) % Eos % (Auto) (0.0-4.3) % Baso % (Auto) (0.0-1.8) % Lymph # (Auto) (1.2-5.4) K/mm3 [place] # (Auto) (0.0-0.8) K/mm3 Eos # (Auto) (0.0-0.4) K/mm3 Baso # (Auto) (0.0-0.1) K/mm3 Seg Neutrophils % (40.0-70.0) % Seg Neutrophils # (1.8-7.7) K/mm3 PT (12.2-14.9) Sec. INR (0.87-1.13) APTT (24.2-36.6) Sec. ABG pH (7.350-7.450) pH Units ABG pCO2 mm Hg ABG pO2 (80.0-90.0) mm Hg ABG HCO3 (20.0-26.0) mmol/L ABG O2 Saturation (95.0-99.0) % ABG O2 Content (0.0-44) ABG Base Excess (-2.0-3.0) mmol/L ABG Hemoglobin (12.0-16.0) gm/dl ABG Carboxyhemoglobin (0.0-5.0) % ABG Methemoglobin (0.0-1.5) % Oxyhemoglobin (95.0-99.0) % FiO2 % Sodium (137-145) mmol/L Potassium (3.6-5.0) mmol/L Chloride (98-107) mmol/L Carbon Dioxide (22-30) mmol/L Anion Gap mmol/L BUN (7-17) mg/dL Creatinine (0.6-1.2) mg/dL Estimated GFR ml/min BUN/Creatinine Ratio % Glucose (65-100) mg/dL Calcium (8.4-10.2) mg/dL Magnesium (1.7-2.3) mg/dL Total Bilirubin (0.1-1.2) mg/dL AST (5-40) units/L ALT (7-56) units/L Alkaline Phosphatase (35-129) units/L Ammonia (25-60) umol/L Total Creatine Kinase 296 H (30-135) units/L CK-MB (CK-2) 4.7 H (0.0-4.0) ng/mL CK-MB (CK-2) Rel Index 1.5 (0-4) Troponin T 0.011 (0.00-0.029) ng/mL NT-Pro-B Natriuret Pep (0-900) pg/mL Total Protein (6.3-8.2) g/dL Albumin (3.9-5) g/dL Albumin/Globulin Ratio % Plasma/Serum Alcohol < 0.01 (0-0.07) % Blood Type Antibody Screen Crossmatch - EKG Data -: EKG Interpreted by [facility] EKG shows normal: sinus rhythm, ST-T waves (LVH, anterior lat t wave inv) Rate: normal - EKG Data When compared to previous EKG there are: no significant change - Radiology Data Radiology results: report reviewed CHEST 1 VIEW 11/17/2021 1:30 PM INDICATION / CLINICAL INFORMATION: Shortness of breath. COMPARISON: 09/22/21. FINDINGS: SUPPORT DEVICES: Probable shunt tubing overlying the left hemithorax. The right jugular CVL has been removed. HEART / MEDIASTINUM: There is moderate cardiomegaly. Pulmonary vasculature is normal. There is prominent calcification in the aortic arch without aneurysm. LUNGS / PLEURA: There is minimal parenchymal disease in the right lung base, slightly improved. The lungs are otherwise clear. No pleural effusion. No pneumothorax. ADDITIONAL FINDINGS: No significant additional findings. IMPRESSION: Minimal parenchymal disease in the right lung base is likely related to atelectasis rather than edema or pneumonia. CT BRAIN: 11/17/2021 INDICATION / CLINICAL INFORMATION: Diminished mental status and slurred speech. COMPARISON: CT brain 09/22/2021 FINDINGS: BRAIN/INTRACRANIAL STRUCTURES: Unenhanced CT images of the brain demonstrate no evidence of acute abnormality. Again seen is evidence of prior right frontal craniotomy and right MCA aneurysm repair. Left frontal shunt tube is in unchanged position. The ventricular system remains collapsed. There is no evidence of acute large vessel territory ischemic injury, hemorrhage, or mass. There are no abnormal extra-axial fluid collections. EXTRACRANIAL STRUCTURES: Unremarkable. IMPRESSION: No acute abnormality. Stable postoperative changes. - Medical Decision Making 66-year-old female presents to the hospital with shortness of breath. ED work- up revealed significant anemia and likely cause of shortness of breath. Patient has a room air saturation 100% with clear breath sounds on physical examination. Patient is chronically on Eliquis for underlying A. fib versus PAD and states she has been compliant. Patient has guaiac positive brown stools therefore GI consulted. Patient does have history of requiring a blood transfusion with last performed this past August. Blood has been requested and apparently patient has antibodies therefore blood needs to be obtained from the [facility]. Patient was significantly drowsy upon ED arrival with slurred and slow speech. Patient with scream in pain secondary to lower extremities did not fall back to sleep. CT head without acute findings. I suspect that patient was medicated with pain medication. During ED observation her mental status improved and she was alert, able to have a conversation, and was no longer screaming in pain. She states her speech is at baseline and does not report any new neurologic deficits. Patient has chronic PAD with palpable distal pulses. ABG was performed without significant acid-base disturbance. Patient will be admitted to telemetry due to significant anemia and history of CAD/CHF. Hospitalist informed - Differential Diagnosis Pain med overdose, anemia, chronic pain, CHF, PE, ustable angina Critical Care Time: No Critical care attestation.: If time is entered above; I have spent that time in minutes in the direct care of this critically ill patient, excluding procedure time. ED Disposition Clinical Impression: Symptomatic anemia, Chronic pain, PAD (peripheral artery disease), Guaiac positive stools, Chronic anticoagulation Disposition: ADMITTED INPATIENT Is pt being admited?: Yes Condition: Stable Time of Disposition: 17:31 (Dr Mcclain/hospitalist)
--- NOTE | 2021-11-17 14:03 | XRay Report ---
CHEST 1 VIEW 11/17/2021 1:30 PM INDICATION / CLINICAL INFORMATION: Shortness of breath. COMPARISON: 09/22/21. FINDINGS: SUPPORT DEVICES: Probable shunt tubing overlying the left hemithorax. The right jugular CVL has been removed. HEART / MEDIASTINUM: There is moderate cardiomegaly. Pulmonary vasculature is normal. There is promin ent calcification in the aortic arch without aneurysm. LUNGS / PLEURA: There is minimal parenchymal disease in the right lung base, slightly improved. The l ungs are otherwise clear. No pleural effusion. No pneumothorax. ADDITIONAL FINDINGS: No significant additional findings. IMPRESSION: Minimal parenchymal disease in the right lung base is likely related to atelectasis rathe r than edema or pneumonia. Signer Name: Huber Marmolejo MD Signed: 11/17/2021 1:58 PM Workstation Name: [id number]
[2021-11-17 14:50] LABS: ABG Base Excess 1.5 mmol/L (-2.0-3.0); ABG HCO3 26.4 mmol/L (20.0-26.0); ABG Methemoglobin 0.3 % (0.0-1.5); ABG Oxygen Saturation 97.3 % (95.0-99.0); ABG PCO2 44.1 mm Hg; ABG PH 7.395 pH Units (7.350-7.450); ABG PO2 72.3 mm Hg (80.0-90.0)
[2021-11-17 15:53] LABS: Basophils # (Auto) 0.1 K/mm3 (0.0-0.1); Eosinophils # (Auto) 0.1 K/mm3 (0.0-0.4); Eosinophils % (Auto) 2.5 % (0.0-4.3); Lymphocytes # (Auto) 0.9 K/mm3 (1.2-5.4); Lymphocytes % (Auto) 17.8 % (13.4-35.0); Mean Corpuscular HGB Conc 30 % (30-34); Monocytes # (Auto) 0.4 K/mm3 (0.0-0.8); Monocytes % (Auto) 7.7 % (0.0-7.3); Red Cell Distribution Width 18.2 % (13.2-15.2)
[2021-11-17 16:01] LABS: Hematocrit 17.1 % (30.3-42.9); Hemoglobin 5.1 gm/dl (10.1-14.3); INR 1.16 (0.87-1.13); Mean Corpuscular Volume 66 fl (79-97)
[2021-11-17 16:02] LABS: Partial Thromboplastin Time 29.7 Sec. (24.2-36.6)
[2021-11-17 16:09] LABS: Platelet Count 196 K/mm3 (140-440)
[2021-11-17 16:16] LABS: Creatine Kinase MB 4.7 ng/mL (0.0-4.0)
[2021-11-17 16:20] LABS: Alanine Aminotransferase 9 units/L (7-56); Albumin 4.4 g/dL (3.9-5); BUN/Creatinine Ratio 23; Blood Urea Nitrogen 18 mg/dL (7-17); Calcium 9.1 mg/dL (8.4-10.2); Hemolysis Index 4
[2021-11-17] MEDS ORDERED: SODIUM CHLORIDE 0.9% 500 ML 500 ML IV ONE (16:36)
--- NOTE | 2021-11-17 16:59 | Cat Scan Report ---
CT BRAIN: 11/17/2021 INDICATION / CLINICAL INFORMATION: Diminished mental status and slurred speech. COMPARISON: CT brain 09/22/2021 FINDINGS: BRAIN/INTRACRANIAL STRUCTURES: Unenhanced CT images of the brain demonstrate no evidence of acute abn ormality. Again seen is evidence of prior right frontal craniotomy and right MCA aneurysm repair. Left frontal shunt tube is in unchanged position. The ventricular system remains collapsed. There is no evidence of acute large vessel territory ischemic injury, hemorrhage, or mass. There are no abnormal extra-axial fluid collections. EXTRACRANIAL STRUCTURES: Unremarkable. IMPRESSION: No acute abnormality. Stable postoperative changes. All CT scans at this location are performed using dose reduction to ALARA by means of automated expos ure control. Signer Name: Alcno Polo MD Signed: 11/17/2021 4:55 PM Workstation Name: [id number]
[2021-11-17] MEDS ORDERED: ONDANSETRON 4 MG/2 ML INJ IV PRN (17:32)
[2021-11-17] MEDS ORDERED: ACETAMINOPHEN 325 MG TAB PO PRN (17:32)
[2021-11-17] MEDS ORDERED: MORPHINE 2 MG/1 ML INJ IV PRN (17:32)
--- NOTE | 2021-11-18 00:27 | History and Physical Report ---
History of Present Illness Date of examination: 11/17/21 Date of admission: 11/17/21 17:34 Chief complaint: Severe weakness for 3-4 days Shortness of breath for 3 to 4 days History of present illness: 66-year-old female with multiple medical problems including COPD, coronary artery disease, peripheral vascular disease, hepatitis C, nicotine dependence and current everyday smoker V/p shunt aneurysm repair in 1998, A. fib on Eliquis, daily tobacco abuse rheumatoid arthritis, hyperlipidemia, presents to the emergency room in a drowsy state but easily arousable. Patient is a very poor historian. She complains of shortness of breath and severe weakness. Blood pressure was 100/54 initially. Patient was admitted in August for acute encephalopathy dehydration causing acute kidney injury and hypertension and anemia requiring multiple blood transfusions In the emergency room patient was found to have very low hemoglobin and hematocrit 5.1/17.1. Patient was occult blood positive on rectal exam by ER physician. GI consulted. For possible upper GI bleed. Last admission in August 2021 was reviewed--patient has CHF with ejection fraction of 30 to 35% JEANNETTE which was resolved and anemia and syncope. - Past Medical History --Previous Medical History?: Yes --Hypertension: Yes --Congestive Heart Failure: Yes --Deep Vein Thrombosis: No --Liver Disease: Yes (HEP C) --Arthritis: Yes --Seizures: No (Has EMERGENCY DEPARTMENT DIRECTOR shunt 1998. S/P Aneurysm repair-denies neuro deficits) --Asthma: Yes --COPD: Yes --Additional medical history: 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 EMERGENCY DEPARTMENT DIRECTOR shunt - Surgical History --Past Surgical History?: Yes --Coronary Stent: Yes --Pacemaker: No --Internal Defibrillator: No --Additional Surgical History: Tubal ligation. 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 Skin no rash no itching Psychiatric no depression no homicidal or suicidal tendencies Hematologic no lymphedema or bruising Endocrine no polydipsia no polyuria no cold intolerance no heat intolerance Medications and Allergies Allergies Allergy/AdvReac Type Severity Reaction Status Date / Time phenytoin sodium Allergy Hives Verified 09/25/21 13:32 [From Dilantin] phenytoin sodium extended Allergy Hives Verified 09/25/21 13:32 [From Dilantin] Home Medications Medication Instructions Recorded Confirmed Last Taken Type ALBUTEROL NEB's [Proventil 0.083% 2.5 mg IH TID PRN 09/22/21 09/25/21 Unknown History NEBS] Apixaban [Eliquis] 5 mg PO BID 09/22/21 09/25/21 Unknown History Atorvastatin Calcium [Lipitor] 80 mg PO QHS 09/22/21 09/25/21 Unknown History Gabapentin [Neurontin] 800 mg PO TID 09/22/21 09/25/21 Unknown History Ipratropium/Albuterol Sulfate 1 ampul IH Q6HR PRN 09/22/21 09/25/21 Unknown History [DUONEB *Not for PRN Use*] Pantoprazole Sodium 40 mg PO DAILY 09/22/21 09/25/21 Unknown History carvediloL [Coreg] 3.125 mg PO BID 09/22/21 09/25/21 Unknown History DULoxetine [Cymbalta] 30 mg PO QDAY 09/25/21 09/25/21 Unknown History Lisinopril [Zestril TAB] 2.5 mg PO QDAY 09/25/21 09/25/21 Unknown History AtorvaSTATin [Lipitor] 40 mg PO QHS #30 tablet 09/27/21 Unknown Rx Clopidogrel [Plavix] 75 mg PO QDAY #30 09/27/21 Unknown Rx Isosorb Dinit/Hydralazine [Bidil 1 each PO Q8HR #90 tablet 09/27/21 Unknown Rx 20/37.5MG] Pantoprazole [Protonix TAB] 40 mg PO BIDAC tablet 09/27/21 Unknown Rx carvediloL [Coreg] 3.125 mg PO BID #60 tablet 09/27/21 Unknown Rx Active Meds: Active Medications Acetaminophen (Acetaminophen 325 Mg Tab) 650 mg PO Q4H PRN PRN Reason: Pain MILD(1-3)/Fever >100.5/GARCIA Morphine Sulfate (Morphine 2 Mg/1 Ml Inj) 2 mg IV Q4H PRN PRN Reason: Pain, Moderate (4-6) Ondansetron HCl (Ondansetron 4 Mg/2 Ml Inj) 4 mg IV Q8H PRN PRN Reason: Nausea And Vomiting Sodium Chloride (Sodium Chloride 0.9% 10 Ml Flush Syringe) 10 ml IV BID LENY Sodium Chloride (Sodium Chloride 0.9% 10 Ml Flush Syringe) 10 ml IV PRN PRN PRN Reason: LINE FLUSH Exam - Constitutional Vitals: Temp Pulse Resp BP Pulse Ox 98.7 F 73 17 100/54 100 11/17/21 14:10 11/17/21 20:46 11/17/21 20:46 11/17/21 20:46 11/17/21 20:00 General appearance: Present: no acute distress, well-nourished - EENT Eyes: Present: PERRL ENT: hearing intact, clear oral mucosa - Neck Neck: Present: supple, normal ROM - Respiratory Respiratory effort: normal Respiratory: bilateral: CTA - Cardiovascular Heart rate: 78 Rhythm: regular Heart Sounds: Present: S1 & S2. Absent: rub, click - Extremities Extremities: no ischemia, pulses intact, pulses symmetrical, No edema Peripheral Pulses: within normal limits - Abdominal General gastrointestinal: Present: soft, non-tender, non-distended, normal bowel sounds Female genitourinary: Present: normal - Integumentary Integumentary: Present: clear, warm, dry - Musculoskeletal Musculoskeletal: gait normal, strength equal bilaterally - Psychiatric Psychiatric: appropriate mood/affect, intact judgment & insight - Neurologic Neurologic: CNII-XII intact, moves all extremities - Allied Health Allied health notes reviewed: nursing, case management HEART Score - HEART Score History: Moderately suspicious Age: > 65 Risk factors: > 3 risk factors or hx of atherosclerotic disease Troponin: Troponin T 0.011 ng/mL (0.00-0.029) 11/17/21 15:00 Troponin: < normal limit - Critical Actions Critical Actions: 4-6 pts:12-16.6% risk of adverse cardiac event. Should be admitted Results - Labs CBC & Chem 7: 11/17/21 15:00 11/17/21 15:00 Labs: Laboratory Last Values WBC 5.0 K/mm3 (4.5-11.0) 11/17/21 15:00 RBC 2.60 M/mm3 (3.65-5.03) L 11/17/21 15:00 Hgb 5.1 gm/dl (10.1-14.3) L* 11/17/21 15:00 Hct 17.1 % (30.3-42.9) L* 11/17/21 15:00 MCV 66 fl (79-97) L 11/17/21 15:00 MCH 20 pg (28-32) L 11/17/21 15:00 MCHC 30 % (30-34) 11/17/21 15:00 RDW 18.2 % (13.2-15.2) H 11/17/21 15:00 Plt Count 196 K/mm3 (140-440) 11/17/21 15:00 Lymph % (Auto) 17.8 % (13.4-35.0) 11/17/21 15:00 [place] % (Auto) 7.7 % (0.0-7.3) H 11/17/21 15:00 Eos % (Auto) 2.5 % (0.0-4.3) 11/17/21 15:00 Baso % (Auto) 1.0 % (0.0-1.8) 11/17/21 15:00 Lymph # (Auto) 0.9 K/mm3 (1.2-5.4) L 11/17/21 15:00 [place] # (Auto) 0.4 K/mm3 (0.0-0.8) 11/17/21 15:00 Eos # (Auto) 0.1 K/mm3 (0.0-0.4) 11/17/21 15:00 Baso # (Auto) 0.1 K/mm3 (0.0-0.1) 11/17/21 15:00 Seg Neutrophils % 71.0 % (40.0-70.0) H 11/17/21 15:00 Seg Neutrophils # 3.6 K/mm3 (1.8-7.7) 11/17/21 15:00 PT 16.2 Sec. (12.2-14.9) H 11/17/21 15:00 INR 1.16 (0.87-1.13) H 11/17/21 15:00 APTT 29.7 Sec. (24.2-36.6) 11/17/21 15:00 ABG pH 7.395 pH Units (7.350-7.450) 11/17/21 14:15 ABG pCO2 44.1 mm Hg 11/17/21 14:15 ABG pO2 72.3 mm Hg (80.0-90.0) L 11/17/21 14:15 ABG HCO3 26.4 mmol/L (20.0-26.0) H 11/17/21 14:15 ABG O2 Saturation 97.3 % (95.0-99.0) 11/17/21 14:15 ABG O2 Content 5.2 (0.0-44) 11/17/21 14:15 ABG Base Excess 1.5 mmol/L (-2.0-3.0) 11/17/21 14:15 ABG Hemoglobin 5.0 gm/dl (12.0-16.0) L 11/17/21 14:15 ABG Carboxyhemoglobin 7.6 % (0.0-5.0) H 11/17/21 14:15 ABG Methemoglobin 0.3 % (0.0-1.5) 11/17/21 14:15 Oxyhemoglobin 89.7 % (95.0-99.0) L 11/17/21 14:15 FiO2 21 % 11/17/21 14:15 Sodium 141 mmol/L (137-145) 11/17/21 15:00 Potassium 3.6 mmol/L (3.6-5.0) 11/17/21 15:00 Chloride 104.3 mmol/L (98-107) 11/17/21 15:00 Carbon Dioxide 24 mmol/L (22-30) 11/17/21 15:00 Anion Gap 16 mmol/L 11/17/21 15:00 BUN 18 mg/dL (7-17) H 11/17/21 15:00 Creatinine 0.8 mg/dL (0.6-1.2) 11/17/21 15:00 Estimated GFR > 60 ml/min 11/17/21 15:00 BUN/Creatinine Ratio 23 % 11/17/21 15:00 Glucose 100 mg/dL (65-100) 11/17/21 15:00 Calcium 9.1 mg/dL (8.4-10.2) 11/17/21 15:00 Magnesium 2.10 mg/dL (1.7-2.3) 11/17/21 15:00 Total Bilirubin 0.30 mg/dL (0.1-1.2) 11/17/21 15:00 AST 16 units/L (5-40) 11/17/21 15:00 ALT 9 units/L (7-56) 11/17/21 15:00 Alkaline Phosphatase 77 units/L (35-129) 11/17/21 15:00 Ammonia 25.0 umol/L (25-60) 11/17/21 15:00 Total Creatine Kinase 296 units/L (30-135) H 11/17/21 15:00 CK-MB (CK-2) 4.7 ng/mL (0.0-4.0) H 11/17/21 15:00 CK-MB (CK-2) Rel Index 1.5 (0-4) 11/17/21 15:00 Troponin T 0.011 ng/mL (0.00-0.029) 11/17/21 15:00 NT-Pro-B Natriuret Pep 1173 pg/mL (0-900) H 11/17/21 15:00 Total Protein 6.7 g/dL (6.3-8.2) 11/17/21 15:00 Albumin 4.4 g/dL (3.9-5) 11/17/21 15:00 Albumin/Globulin Ratio 1.9 % 11/17/21 15:00 Plasma/Serum Alcohol < 0.01 % (0-0.07) 11/17/21 15:00 Blood Type A POSITIVE 11/17/21 15:00 Antibody Screen Positive 11/17/21 15:00 Antibody Identification Anti-E 11/17/21 15:00 Crossmatch See Detail 11/17/21 15:00 Microbiology: Microbiology 11/17/21 17:01 Stool Stool Occult Blood (GUY) - Final Masters/IV: Voiding Method Toilet Assessment and Plan Advance Directives: Yes (Full code) VTE prophylaxis?: Chemical Plan of care discussed with patient/family: Yes - Patient Problems (1) Symptomatic anemia Current Visit: Yes Status: Acute Plan to address problem: Patient to be transfused 2 to 3 units of packed red blood cells Hemoglobin and hematocrit every 8 hours GI consult requested Patient started on IV Protonix 40 mg every 12 hours Eliquis and Plavix stopped for the time being (2) Hypertension Current Visit: Yes Status: Chronic Qualifiers: Hypertension type: primary hypertension Qualified Code(s): I10 - Essential (primary) hypertension Plan to address problem: Holding oral antihypertensives and patient initiated on Catapres patch Patient is n.p.o. (3) CHF (congestive heart failure), NYHA class III Current Visit: Yes Status: Acute (4) CHF (congestive heart failure) Current Visit: No Status: Chronic Qualifiers: Heart failure type: combined systolic and diastolic Plan to address problem: Patient has ejection fraction of 30 to 35% IV Lasix as necessary No repeat echocardiogram Arianne heart consulted (5) Coronary artery disease Current Visit: Yes Status: Chronic Qualifiers: Coronary Disease-Associated Artery/Lesion type: [place] artery [place] vs. transplanted heart: [place] heart Plan to address problem: Hold Plavix and isosorbide mononitrate for now (6) Peripheral neuropathy Current Visit: Yes Status: Chronic Qualifiers: Peripheral neuropathy type: polyneuropathy, unspecified Qualified Code(s): G62.9 - Polyneuropathy, unspecified Plan to address problem: On gabapentin and Cymbalta--hold for now (7) COPD (chronic obstructive pulmonary disease) Current Visit: Yes Status: Chronic Qualifiers: COPD type: unspecified COPD Qualified Code(s): J44.9 - Chronic obstructive pulmonary disease, unspecified Plan to address problem: DuoNebs as needed (8) A-fib Current Visit: Yes Status: Chronic Qualifiers: Atrial fibrillation type: persistent (not longstanding) Qualified Code(s): I48.19 - Other persistent atrial fibrillation; I48.1 - Persistent atrial fibrillation Plan to address problem: Eliquis on hold for now Cardiology consult (9) Encounter for smoking cessation counseling Current Visit: Yes Status: Chronic Plan to address problem: Patient counseled about smoking cessation and alternatives which are available like Chantix, NicoDerm patch, NicoDerm and Nicorette gum and venlafaxine Time spent more than 10 minutes (10) Nicotine dependence Current Visit: Yes Status: Chronic Qualifiers: Nicotine product type: cigarettes Plan to address problem: Initiated on NicoDerm patch (11) DVT prophylaxis Current Visit: No Status: Acute Plan to address problem: Patient on SCDs and GI prophylaxis (12) Advance care planning Current Visit: Yes Status: Acute Plan to address problem: Disease education conducted, care plan discussed, diagnosis discussed, prognosis discussed. Patient is full code. Patient acknowledged understanding and agreement with care plan. +30 minutes.
[2021-11-18] MEDS ORDERED: ONDANSETRON 4 MG/2 ML INJ IV PRN (00:36)
[2021-11-18] MEDS ORDERED: ACETAMINOPHEN 325 MG TAB PO PRN (00:36)
[2021-11-18] MEDS ORDERED: SODIUM CHLORIDE 0.9% 1000 ML 1,000 ML IV SCH (00:45)
[2021-11-18] MEDS: PANTOPRAZOLE 40 MG INJ IV SCH ×3 (01:50→21:19)
[2021-11-18] MEDS ORDERED: cloNIDine TTS 0.2 MG/24 HR PATCH TD SCH (06:00)
[2021-11-18] MEDS ORDERED: ISOSORB DINIT/HYDRALAZINE 20-37.5MG TAB PO SCH (06:00)
[2021-11-18] MEDS ORDERED: GABAPENTIN 400 MG CAP PO SCH (08:00)
[2021-11-18] MEDS ORDERED: NON-FORMULARY EACH (Gabapentin [Neurontin] 800 MG Tablet) PO SCH (08:00)
[2021-11-18] MEDS ORDERED: NON-FORMULARY EACH (Lisinopril [Zestril Tab] 2.5 MG Tablet) PO SCH (10:00)
[2021-11-18] MEDS ORDERED: CLOPIDOGREL 75 MG TAB PO SCH (10:00)
[2021-11-18] MEDS ORDERED: PANTOPRAZOLE 40 MG TAB PO SCH (10:00)
[2021-11-18] MEDS ORDERED: NON-FORMULARY EACH (Apixaban 5 MG Tablet) PO SCH (10:00)
[2021-11-18] MEDS ORDERED: DULoxetine 30 MG CAP PO SCH (10:00)
[2021-11-18] MEDS ORDERED: carvediloL 3.125 MG TAB PO SCH (10:00)
[2021-11-18] MEDS ORDERED: SODIUM CHLORIDE 0.9% 500 ML 500 ML IV ONE (10:46)
--- NOTE | 2021-11-18 10:55 | Progress Note ---
Assessment and Plan Assessment and plan: #Acute symptomatic anemia Hemoglobin 5.1. Transfused 1 unit packed RBC on admission. Trending H&H every 12 hours. Ordering additional 1 unit packed RBC to be transfused today. Currently holding anticoagulation (Eliquis 5 mg every 12 hours) and antihypertensives. Unable to perform iron study + TIBC as the patient is status post transfusion. Unremarkable YUMIKO. Gastroenterology consulted; appreciate recs. Planning upper endoscopy tomorrow. Clear liquid diet and n.p.o. at midnight. Continue IV pantoprazole 40 mg every 12 hours. Continue IV maintenance fluids. #Acute on chronic systolic heart failure - Continue CHF exacerbation protocol: Telemetry, Strict I/O, monitor urine output every shift, daily weights, afterload reduction, low-sodium diet, and fluid restriction of approximately 1.5 mL/day - Supplemental oxygen: Room air - ProBNP on admission: 1173 - Cardiology consulted; pending recs - TTE (09/23/2021) revealing EF 30-35% with mildly dilated LV, severely decreased LV systolic function, borderline concentric LVH - Continue to monitor #Hypertension #Hyperlipidemia #History of coronary artery disease - home medications: Lisinopril 2.5 mg daily, Coreg 3.125 mg twice daily, atorvastatin 80 mg daily, Plavix 75 mg daily, and Imdur 30 mg daily Holding home Plavix 75 mg daily and Imdur 30 mg daily. Continue home atorvastatin 80 mg daily. - SBP goal <160 and DBP goal <90 while inpatient - continue to monitor #Peripheral neuropathy Holding home gabapentin and Cymbalta. Can restart prior to discharge. #Chronic COPDstable Continue DuoNebs and albuterol nebs as needed #Chronic atrial fibrillation on anticoagulation Holding Eliquis 5 mg twice daily in the setting of symptomatic anemia. Holding Coreg 3.125 mg twice daily. Will restart prior to discharge. Cardiology consulted regarding anticoagulation; pending recs #Tobacco dependence #Tobacco/Smoking cessation counseling - Counseled patient about the importance of smoking cessation and the possible sequelae as a result of continued tobacco consumption. The patient expresses understanding. Continue nicotine patch. -Time: +15 mins Critical Care Billing: The high probability of a clinically significant, sudden or life threatening deterioration of the [hematology] system(s) required my full and direct attention, intervention and personal management. The aggregate critical care time was [60] minutes. This time is in addition to time spent performing reported procedures but includes the following: [x] Data Review and interpretation [x] Patient assessment and monitoring of vital signs [x] Documentation [x] Medication orders and management Disposition Plan: Continue medical management Total Time Spent with Patient (Minutes): 45 minutes History Interval history: No acute events overnight. Hospitalist Physical - Constitutional Vitals: Temp Pulse Resp BP Pulse Ox 983 F H 72 22 118/52 96 11/18/21 09:25 11/18/21 09:25 11/18/21 09:25 11/18/21 09:25 11/18/21 09:25 General appearance: Present: no acute distress, well-nourished, other (Sleeping comfortably in bed) - EENT Eyes: Present: PERRL, EOM intact ENT: hearing intact, clear oral mucosa - Neck Neck: Present: supple, normal ROM - Respiratory Respiratory effort: normal Respiratory: bilateral: CTA - Cardiovascular Rhythm: regular Heart Sounds: Present: S1 & S2 - Extremities Extremities: no ischemia, pulses intact, pulses symmetrical, No edema, normal temperature, normal color Peripheral Pulses: within normal limits - Abdominal General gastrointestinal: soft, non-tender, non-distended, normal bowel sounds - Integumentary Integumentary: Present: clear, warm, dry - Psychiatric Psychiatric: appropriate mood/affect, cooperative - Neurologic Neurologic: CNII-XII intact - Allied Health Allied health notes reviewed: nursing HEART Score - HEART Score Age: > 65 Risk factors: > 3 risk factors or hx of atherosclerotic disease Troponin: Troponin T 0.011 ng/mL (0.00-0.029) 11/17/21 15:00 Troponin: < normal limit - Critical Actions Critical Actions: 4-6 pts:12-16.6% risk of adverse cardiac event. Should be admitted Results - Labs CBC & Chem 7: 11/17/21 15:00 11/17/21 15:00 Labs: Laboratory Last Values WBC 5.0 K/mm3 (4.5-11.0) 11/17/21 15:00 RBC 2.60 M/mm3 (3.65-5.03) L 11/17/21 15:00 Hgb 5.1 gm/dl (10.1-14.3) L* 11/17/21 15:00 Hct 17.1 % (30.3-42.9) L* 11/17/21 15:00 MCV 66 fl (79-97) L 11/17/21 15:00 MCH 20 pg (28-32) L 11/17/21 15:00 MCHC 30 % (30-34) 11/17/21 15:00 RDW 18.2 % (13.2-15.2) H 11/17/21 15:00 Plt Count 196 K/mm3 (140-440) 11/17/21 15:00 Lymph % (Auto) 17.8 % (13.4-35.0) 11/17/21 15:00 [place] % (Auto) 7.7 % (0.0-7.3) H 11/17/21 15:00 Eos % (Auto) 2.5 % (0.0-4.3) 11/17/21 15:00 Baso % (Auto) 1.0 % (0.0-1.8) 11/17/21 15:00 Lymph # (Auto) 0.9 K/mm3 (1.2-5.4) L 11/17/21 15:00 [place] # (Auto) 0.4 K/mm3 (0.0-0.8) 11/17/21 15:00 Eos # (Auto) 0.1 K/mm3 (0.0-0.4) 11/17/21 15:00 Baso # (Auto) 0.1 K/mm3 (0.0-0.1) 11/17/21 15:00 Seg Neutrophils % 71.0 % (40.0-70.0) H 11/17/21 15:00 Seg Neutrophils # 3.6 K/mm3 (1.8-7.7) 11/17/21 15:00 PT 16.2 Sec. (12.2-14.9) H 11/17/21 15:00 INR 1.16 (0.87-1.13) H 11/17/21 15:00 APTT 29.7 Sec. (24.2-36.6) 11/17/21 15:00 ABG pH 7.395 pH Units (7.350-7.450) 11/17/21 14:15 ABG pCO2 44.1 mm Hg 11/17/21 14:15 ABG pO2 72.3 mm Hg (80.0-90.0) L 11/17/21 14:15 ABG HCO3 26.4 mmol/L (20.0-26.0) H 11/17/21 14:15 ABG O2 Saturation 97.3 % (95.0-99.0) 11/17/21 14:15 ABG O2 Content 5.2 (0.0-44) 11/17/21 14:15 ABG Base Excess 1.5 mmol/L (-2.0-3.0) 11/17/21 14:15 ABG Hemoglobin 5.0 gm/dl (12.0-16.0) L 11/17/21 14:15 ABG Carboxyhemoglobin 7.6 % (0.0-5.0) H 11/17/21 14:15 ABG Methemoglobin 0.3 % (0.0-1.5) 11/17/21 14:15 Oxyhemoglobin 89.7 % (95.0-99.0) L 11/17/21 14:15 FiO2 21 % 11/17/21 14:15 Sodium 141 mmol/L (137-145) 11/17/21 15:00 Potassium 3.6 mmol/L (3.6-5.0) 11/17/21 15:00 Chloride 104.3 mmol/L (98-107) 11/17/21 15:00 Carbon Dioxide 24 mmol/L (22-30) 11/17/21 15:00 Anion Gap 16 mmol/L 11/17/21 15:00 BUN 18 mg/dL (7-17) H 11/17/21 15:00 Creatinine 0.8 mg/dL (0.6-1.2) 11/17/21 15:00 Estimated GFR > 60 ml/min 11/17/21 15:00 BUN/Creatinine Ratio 23 % 11/17/21 15:00 Glucose 100 mg/dL (65-100) 11/17/21 15:00 Calcium 9.1 mg/dL (8.4-10.2) 11/17/21 15:00 Magnesium 2.10 mg/dL (1.7-2.3) 11/17/21 15:00 Total Bilirubin 0.30 mg/dL (0.1-1.2) 11/17/21 15:00 AST 16 units/L (5-40) 11/17/21 15:00 ALT 9 units/L (7-56) 11/17/21 15:00 Alkaline Phosphatase 77 units/L (35-129) 11/17/21 15:00 Ammonia 25.0 umol/L (25-60) 11/17/21 15:00 Total Creatine Kinase 296 units/L (30-135) H 11/17/21 15:00 CK-MB (CK-2) 4.7 ng/mL (0.0-4.0) H 11/17/21 15:00 CK-MB (CK-2) Rel Index 1.5 (0-4) 11/17/21 15:00 Troponin T 0.011 ng/mL (0.00-0.029) 11/17/21 15:00 NT-Pro-B Natriuret Pep 1173 pg/mL (0-900) H 11/17/21 15:00 Total Protein 6.7 g/dL (6.3-8.2) 11/17/21 15:00 Albumin 4.4 g/dL (3.9-5) 11/17/21 15:00 Albumin/Globulin Ratio 1.9 % 11/17/21 15:00 Plasma/Serum Alcohol < 0.01 % (0-0.07) 11/17/21 15:00 Blood Type A POSITIVE 11/17/21 15:00 Antibody Screen Positive 11/17/21 15:00 Antibody Identification Anti-E 11/17/21 15:00 Crossmatch See Detail 11/17/21 15:00 Microbiology: Microbiology 11/17/21 17:01 Stool Stool Occult Blood (GUY) - Final Masters/IV: Voiding Method Toilet Active Medications - Current Medications Current Medications: Generic Name Dose Route Start Last Admin Trade Name Freq PRN Reason Stop Dose Admin Acetaminophen 650 mg 11/18/21 00:36 Acetaminophen 325 Mg Tab PO Q4H PRN Pain MILD(1-3)/Fever >100.5/GARCIA Clonidine HCl 0.2 mg 11/18/21 06:00 Clonidine Tts 0.2 Mg/24 Hr Patch TD Nick LENY Hydromorphone HCl 0.5 mg 11/18/21 00:36 Hydromorphone 0.5 Mg/0.5 Ml Inj IV Q3H PRN Pain , Severe (7-10) Sodium Chloride 1,000 mls @ 42 mls/hr 11/18/21 00:45 11/18/21 01:51 Nacl 0.9% 1000 Ml IV 42 mls/hr DIRECT LENY Administration Lisinopril 2.5 mg 11/18/21 10:00 Lisinopril 5 Mg Tab PO QDAY LENY Morphine Sulfate 2 mg 11/18/21 00:36 Morphine 2 Mg/1 Ml Inj IV Q4H PRN Pain, Moderate (4-6) Ondansetron HCl 4 mg 11/18/21 00:36 Ondansetron 4 Mg/2 Ml Inj IV Q8H PRN Nausea And Vomiting Pantoprazole Sodium 40 mg 11/18/21 01:00 11/18/21 01:50 Pantoprazole 40 Mg Inj IV 40 mg BID LENY Administration Sodium Chloride 10 ml 11/18/21 10:00 Sodium Chloride 0.9% 10 Ml Flush Syringe IV BID LENY Sodium Chloride 10 ml 11/18/21 00:36 Sodium Chloride 0.9% 10 Ml Flush Syringe IV PRN PRN LINE FLUSH
[2021-11-18] MEDS: LISINOPRIL 5 MG TAB PO SCH (11:09)
[2021-11-18] MEDS: MORPHINE 2 MG/1 ML INJ IV PRN ×2 (11:10→19:07)
--- NOTE | 2021-11-18 11:50 | Progress Note ---
Subjective Date of service: 11/18/21 Interval history: CONSULT DICTATED. I WILL CHECK PREVIOUS WORKUP BY DR ZHANG. Objective Vital Signs Temp Pulse Resp BP BP Pulse Ox 11/18/21 11:10 20 11/18/21 11:09 73 123/64 11/18/21 09:25 983 F H 72 22 118/52 96 11/18/21 07:59 20 117/65 11/18/21 07:03 69 119/67 100 11/18/21 06:34 98.2 F 69 18 119/67 11/18/21 06:04 98.3 F 76 17 116/64 98 11/18/21 05:34 98.4 F 74 16 114/60 97 11/18/21 05:04 98.2 F 74 17 110/62 96 11/18/21 04:40 71 105/49 99 11/18/21 04:34 98.2 F 78 18 105/59 97 11/18/21 04:10 81 11/18/21 04:04 98.3 F 76 17 108/63 96 11/18/21 03:39 74 121/64 94 11/18/21 03:34 98.3 F 73 18 121/64 96 11/18/21 03:19 98.6 F 76 18 130/64 95 11/18/21 03:17 83 130/64 97 11/18/21 00:05 76 11/17/21 22:20 67 11/17/21 20:49 97 11/17/21 20:46 73 17 100/54 11/17/21 20:00 100 11/17/21 19:31 73 14 100/54 11/17/21 19:15 75 14 100/54 11/17/21 19:01 76 14 100/54 11/17/21 18:45 69 13 100/54 11/17/21 18:31 66 13 100/54 11/17/21 18:15 70 14 100/54 11/17/21 18:01 74 14 100/54 98 11/17/21 17:45 74 17 100/54 99 11/17/21 17:31 63 14 100/54 99 11/17/21 17:15 72 12 100/54 100 11/17/21 17:01 66 10 L 100/54 99 11/17/21 16:53 100/54 100 11/17/21 16:31 69 14 100/54 96 11/17/21 16:15 69 17 100/54 95 11/17/21 16:01 68 13 100/54 96 11/17/21 15:45 67 14 100/54 97 11/17/21 15:31 66 11 L 100/54 100 11/17/21 15:15 65 14 100/54 97 11/17/21 15:01 68 12 100/54 99 11/17/21 14:45 66 14 100/54 100 11/17/21 14:31 64 13 100/54 99 11/17/21 14:15 63 10 L 100/54 100 11/17/21 14:10 98.7 F 11/17/21 14:01 63 10 L 100/54 98 11/17/21 13:45 73 13 100/54 100 11/17/21 13:31 73 12 100/54 98 11/17/21 13:15 67 11 L 96/50 99 11/17/21 13:10 52 L 13 98 11/17/21 12:45 75 16 190/155 - Labs and Meds Cardiac Enzymes 11/17/21 11/17/21 Range/Units 15:00 15:00 AST 16 (5-40) units/L CK-MB (CK-2) 4.7 H (0.0-4.0) ng/mL Coagulation 11/17/21 Range/Units 15:00 PT 16.2 H (12.2-14.9) Sec. INR 1.16 H (0.87-1.13) APTT 29.7 (24.2-36.6) Sec. CBC 11/17/21 Range/Units 15:00 WBC 5.0 (4.5-11.0) K/mm3 RBC 2.60 L (3.65-5.03) M/mm3 Hgb 5.1 L* (10.1-14.3) gm/dl Hct 17.1 L* (30.3-42.9) % Plt Count 196 (140-440) K/mm3 Lymph # (Auto) 0.9 L (1.2-5.4) K/mm3 [place] # (Auto) 0.4 (0.0-0.8) K/mm3 Eos # (Auto) 0.1 (0.0-0.4) K/mm3 Baso # (Auto) 0.1 (0.0-0.1) K/mm3 Comprehensive Metabolic Panel 11/17/21 Range/Units 15:00 Sodium 141 (137-145) mmol/L Potassium 3.6 (3.6-5.0) mmol/L Chloride 104.3 (98-107) mmol/L Carbon Dioxide 24 (22-30) mmol/L BUN 18 H (7-17) mg/dL Creatinine 0.8 (0.6-1.2) mg/dL Glucose 100 (65-100) mg/dL Calcium 9.1 (8.4-10.2) mg/dL AST 16 (5-40) units/L ALT 9 (7-56) units/L Alkaline Phosphatase 77 (35-129) units/L Total Protein 6.7 (6.3-8.2) g/dL Albumin 4.4 (3.9-5) g/dL
--- NOTE | 2021-11-18 12:15 | Gastroenterology Consultation ---
History of Present Illness - Reason for Consult Consult date: 11/18/21 anemia Requesting physician: CARLOS LEE - History of Present Illness This is a 66 yo female with pmh of HFrEF, chronic anemia, COPD, CAD, PVD, tobacco use, afib on eliquis, V/P shunt aneurysm repair (1998), and RA admitted overnight for symptomatic anemia. Hgb at 5.1 from 8.4 in 08/2021. She denies any blood in the stools. States she had dark stools a few days ago but last stool was brown yesterday. unsure of when she took her eliquis last. Of note, she was evaluated for anemia with EGD/colonoscopy in [address] Arora at [facility]. They showed small bowel AVM, gastritis and sigmoid ulcers, diverticulosis. She was evaluated again for anemia in 05/2021 at [facility] admission. EGD/colonoscopy done. EGD showed multiple duodenum and jejunum AVMs treated. TTE (09/23/2021) revealing EF 30-35% with mildly dilated LV, severely decreased LV systolic function, borderline concentric LVH EGD at [facility] in 05/2021 FINDINGS: 6 AVMs were visualized throughout the duodenum and proximal jejunum ranging in size from 2 mm to 5 mm. None was actively bleeding. All were treated with APC with some of them bleeding on touch however hemostasis was obtained at the end of the procedure Moderate gastritis of the stomach with nodularity. Biopsies were taken to rule out H. Pylori infection. A total of 5 biopsies were taken, 2 from the antrum, 1 from the incisura, 2 from the body. 3 cm antral hernia GE junction at 35 cm from incisors Remainder of exam unremarkable EGD in 2019 FINDINGS: * Possible 1 mm AVM in the second portion of the duodenum, nonbleeding. Remainder of duodenum was normal * Moderate gastritis of the gastric antrum and body with nodularity. Biopsies were taken to rule out H. Pylori infection. A total of 5 biopsies were taken, 2 from the antrum, 1 from the incisura, 2 from the body. * 2 cm hiatal hernia * Irregular Z line 39 cm from the incisors * Remainder of exam was unremarkable Colonoscopy in 2019 FINDINGS: * Normal terminal ileum * Scattered ulcers in the sigmoid colon and proximal transverse colon ranging in size from 3 mm to 1 cm. Superficial. Nonbleeding. Endoscopic appearance most consistent with ischemic colitis. Cold forceps biopsies obtained to rule out Crohn's/infection * Few small diverticula in the sigmoid colon * Remainder of exam was unremarkable Medication list reviewed. Past History Past Medical History: anemia, CAD, COPD, heart failure, PVD Social history: lives with family Family history: hypertension Medications and Allergies Allergies Allergy/AdvReac Type Severity Reaction Status Date / Time phenytoin sodium Allergy Hives Verified 09/25/21 13:32 [From Dilantin] phenytoin sodium extended Allergy Hives Verified 09/25/21 13:32 [From Dilantin] Home Medications Medication Instructions Recorded Confirmed Last Taken Type ALBUTEROL NEB's [Proventil 0.083% 2.5 mg IH TID PRN 09/22/21 09/25/21 Unknown History NEBS] Apixaban [Eliquis] 5 mg PO BID 09/22/21 09/25/21 Unknown History Atorvastatin Calcium [Lipitor] 80 mg PO QHS 09/22/21 09/25/21 11/16/21 20:45 History Gabapentin [Neurontin] 800 mg PO TID 09/22/21 09/25/21 11/15/21 21:45 History Ipratropium/Albuterol Sulfate 1 ampul IH Q6HR PRN 09/22/21 09/25/21 Unknown History [DUONEB *Not for PRN Use*] Pantoprazole Sodium 40 mg PO DAILY 09/22/21 09/25/21 Unknown History carvediloL [Coreg] 3.125 mg PO BID 09/22/21 09/25/21 Unknown History DULoxetine [Cymbalta] 30 mg PO QDAY 09/25/21 09/25/21 Unknown History Lisinopril [Zestril TAB] 2.5 mg PO QDAY 09/25/21 11/18/21 11/16/21 09:00 History AtorvaSTATin [Lipitor] 40 mg PO QHS #30 tablet 09/27/21 Unknown Rx Clopidogrel [Plavix] 75 mg PO QDAY #30 09/27/21 Unknown Rx Isosorb Dinit/Hydralazine [Bidil 1 each PO Q8HR #90 tablet 09/27/21 Unknown Rx 20/37.5MG] Pantoprazole [Protonix TAB] 40 mg PO BIDAC tablet 09/27/21 11/18/21 11/16/21 20:45 Rx carvediloL [Coreg] 3.125 mg PO BID #60 tablet 09/27/21 11/18/21 11/16/21 21:00 Rx Active Meds: Active Medications Acetaminophen (Acetaminophen 325 Mg Tab) 650 mg PO Q4H PRN PRN Reason: Pain MILD(1-3)/Fever >100.5/GARCIA Clonidine HCl (Clonidine Tts 0.2 Mg/24 Hr Patch) 0.2 mg TD Nick [facility] Hydromorphone HCl (Hydromorphone 0.5 Mg/0.5 Ml Inj) 0.5 mg IV Q3H PRN PRN Reason: Pain , Severe (7-10) Sodium Chloride (Nacl 0.9% 1000 Ml) 1,000 mls @ 42 mls/hr IV DIRECT [facility] Last Admin: 11/18/21 01:51 Dose: 42 mls/hr Lisinopril (Lisinopril 5 Mg Tab) 2.5 mg PO QDAY [facility] Last Admin: 11/18/21 11:09 Dose: 2.5 mg Morphine Sulfate (Morphine 2 Mg/1 Ml Inj) 2 mg IV Q4H PRN PRN Reason: Pain, Moderate (4-6) Last Admin: 11/18/21 11:10 Dose: 2 mg Ondansetron HCl (Ondansetron 4 Mg/2 Ml Inj) 4 mg IV Q8H PRN PRN Reason: Nausea And Vomiting Pantoprazole Sodium (Pantoprazole 40 Mg Inj) 40 mg IV BID [facility] Last Admin: 11/18/21 11:09 Dose: 40 mg Sodium Chloride (Sodium Chloride 0.9% 10 Ml Flush Syringe) 10 ml IV BID [facility] Sodium Chloride (Sodium Chloride 0.9% 10 Ml Flush Syringe) 10 ml IV PRN PRN PRN Reason: LINE FLUSH Review of Systems - Review of Systems All systems: negative Constitutional: no weight loss, no weight gain, no fever Cardiovascular: no chest pain Respiratory: no cough, no shortness of breath Gastrointestinal: melena, no abdominal pain, no nausea, no vomiting Musculoskeletal: joint pain Neurological: weakness Psychiatric: anxiety Hematologic/Lymphatic: no easy bruising Allergic/Immunologic: no wheezing Exam - Constitutional Vital Signs: Temp Pulse Resp BP Pulse Ox 983 F H 73 20 123/64 96 11/18/21 09:25 11/18/21 11:09 11/18/21 11:10 11/18/21 11:09 11/18/21 09:25 General appearance: no acute distress - EENT Eyes: EOM intact ENT: hearing intact - Neck Neck: supple - Respiratory Respiratory effort: normal - Cardiovascular Rhythm: regular Heart Sounds: Present: S1 & S2 - Gastrointestinal General gastrointestinal: Present: soft, non-tender, non-distended - Integumentary Integumentary: Present: clear, warm - Neurologic Neurological: alert and oriented x3 - Psychiatric Psychiatric: appropriate mood/affect - Labs CBC & Chem 7: 11/17/21 15:00 11/17/21 15:00 Lab Results: Laboratory Results - last 24 hr 11/17/21 11/17/21 11/17/21 14:15 15:00 15:00 WBC 5.0 RBC 2.60 L Hgb 5.1 L* Hct 17.1 L* MCV 66 L MCH 20 L MCHC 30 RDW 18.2 H Plt Count 196 Lymph % (Auto) 17.8 Sharkey % (Auto) 7.7 H Eos % (Auto) 2.5 Baso % (Auto) 1.0 Lymph # (Auto) 0.9 L Sharkey # (Auto) 0.4 Eos # (Auto) 0.1 Baso # (Auto) 0.1 Seg Neutrophils % 71.0 H Seg Neutrophils # 3.6 PT 16.2 H INR 1.16 H APTT 29.7 ABG pH 7.395 ABG pCO2 44.1 ABG pO2 72.3 L ABG HCO3 26.4 H ABG O2 Saturation 97.3 ABG O2 Content 5.2 ABG Base Excess 1.5 ABG Hemoglobin 5.0 L ABG Carboxyhemoglobin 7.6 H ABG Methemoglobin 0.3 Oxyhemoglobin 89.7 L FiO2 21 Sodium Potassium Chloride Carbon Dioxide Anion Gap BUN Creatinine Estimated GFR BUN/Creatinine Ratio Glucose Calcium Magnesium Total Bilirubin AST ALT Alkaline Phosphatase Ammonia Total Creatine Kinase CK-MB (CK-2) CK-MB (CK-2) Rel Index Troponin T NT-Pro-B Natriuret Pep Total Protein Albumin Albumin/Globulin Ratio Plasma/Serum Alcohol Blood Type Antibody Screen Antibody Identification Crossmatch 11/17/21 11/17/21 11/17/21 15:00 15:00 15:00 WBC RBC Hgb Hct MCV MCH MCHC RDW Plt Count Lymph % (Auto) Sharkey % (Auto) Eos % (Auto) Baso % (Auto) Lymph # (Auto) Sharkey # (Auto) Eos # (Auto) Baso # (Auto) Seg Neutrophils % Seg Neutrophils # PT INR APTT ABG pH ABG pCO2 ABG pO2 ABG HCO3 ABG O2 Saturation ABG O2 Content ABG Base Excess ABG Hemoglobin ABG Carboxyhemoglobin ABG Methemoglobin Oxyhemoglobin FiO2 Sodium 141 Potassium 3.6 Chloride 104.3 Carbon Dioxide 24 Anion Gap 16 BUN 18 H Creatinine 0.8 Estimated GFR > 60 BUN/Creatinine Ratio 23 Glucose 100 Calcium 9.1 Magnesium 2.10 Total Bilirubin 0.30 AST 16 ALT 9 Alkaline Phosphatase 77 Ammonia 25.0 Total Creatine Kinase CK-MB (CK-2) CK-MB (CK-2) Rel Index Troponin T NT-Pro-B Natriuret Pep 1173 H Total Protein 6.7 Albumin 4.4 Albumin/Globulin Ratio 1.9 Plasma/Serum Alcohol Blood Type A POSITIVE Antibody Screen Positive Antibody Identification Anti-E Crossmatch See Detail 11/17/21 11/17/21 15:00 15:00 WBC RBC Hgb Hct MCV MCH MCHC RDW Plt Count Lymph % (Auto) Sharkey % (Auto) Eos % (Auto) Baso % (Auto) Lymph # (Auto) Sharkey # (Auto) Eos # (Auto) Baso # (Auto) Seg Neutrophils % Seg Neutrophils # PT INR APTT ABG pH ABG pCO2 ABG pO2 ABG HCO3 ABG O2 Saturation ABG O2 Content ABG Base Excess ABG Hemoglobin ABG Carboxyhemoglobin ABG Methemoglobin Oxyhemoglobin FiO2 Sodium Potassium Chloride Carbon Dioxide Anion Gap BUN Creatinine Estimated GFR BUN/Creatinine Ratio Glucose Calcium Magnesium Total Bilirubin AST ALT Alkaline Phosphatase Ammonia Total Creatine Kinase 296 H CK-MB (CK-2) 4.7 H CK-MB (CK-2) Rel Index 1.5 Troponin T 0.011 NT-Pro-B Natriuret Pep Total Protein Albumin Albumin/Globulin Ratio Plasma/Serum Alcohol < 0.01 Blood Type Antibody Screen Antibody Identification Crossmatch Assessment and Plan # Symptomatic anemia. - no overt active GI bleeding at this time. - guiac positive in the ED. - Hgb down to 5 range and now receiving 2 unit of PRBC today. - she was evaluated for anemia with EGD/colonoscopy in [address] Arora at [facility]. They showed small bowel AVM, gastritis and sigmoid ulcers, diverticulosis. She was evaluated again for anemia in 05/2021 at [facility] admission. EGD/colonoscopy done. EGD showed multiple duodenum and jejunum AVMs treated. - suspect bleeding due to upper GI AVMs. - h/o afib and on eliquis. Rec - monitor H/H and transfuse as needed. - cont with PPI IV. - will plan for push enteroscopy tomorrow. - clear liquids and NPO MN. - will need cardiac risk stratification given HFrEF and CAD. - will follow. - Patient Problems (1) Symptomatic anemia Current Visit: Yes Status: Acute
--- NOTE | 2021-11-18 18:17 | Electrocardiograph Report ---
[facility] Test Date: 2021-11-17 Test Time: 13:44:22 Pat Name: CASSIE VAZQUEZ Department: Room: A465 1 Gender: F Licensed Occupational Therapist: GP : [id number] Requested By: CARLOS LEE Order Number: [id number] Reading MD: Damari Mckeon Measurements Intervals [place] Rate: 72 P: 64 ID: [id number] QRS: 47 QRSD: 109 T: 189 QT: 438 QTc: 479 Interpretive Statements Sinus rhythm Prolonged ID interval Abnrm T, consider ischemia, anterolateral lds Compared to ECG 09/23/2021 07:03:48 First degree AV block now present Possible ischemia now present Ventricular premature complex(es) no longer present T-wave abnormality no longer present Myocardial infarct finding no longer present Electronically Signed On 11-18-2021 18:16:30 EDT by Damari Mckeon
[2021-11-18 22:26] LABS: Hematocrit 29.3 % (30.3-42.9); Hemoglobin 9.3 gm/dl (10.1-14.3)
[2021-11-18 22:40] LABS: BUN/Creatinine Ratio 12; Blood Urea Nitrogen 7 mg/dL (7-17); Calcium 9.3 mg/dL (8.4-10.2); Hemolysis Index 0
[2021-11-18] MEDS: HYDROmorphone 0.5 MG/0.5 ML INJ IV PRN (23:08)
[2021-11-19] MEDS: HYDROmorphone 0.5 MG/0.5 ML INJ IV PRN ×3 (03:37→15:40)
--- NOTE | 2021-11-19 07:49 | Consultation ---
DATE OF CONSULTATION: 11/18/2021 HISTORY OF PRESENT ILLNESS: The patient is a 66-year-old -[place] female who was admitted with severe anemia. She has a history of heart disease and sees Dr. Saleh in the office. She is not a very good historian, although she is oriented. She states she has been mildly short of breath at rest for the past day or two. There has been no infectious symptoms or chest discomfort. There has been no ankle swelling, although the chart describes a history of LV dysfunction and congestive heart failure. There is a history of coronary artery disease, COPD, peripheral vascular disease, chronic pain and continued smoking. She is on Eliquis for history of atrial fibrillation. She did not describe any GI disorders or previous GI workup, although she was transfused in August. There has been no palpitations, dizziness, or ankle swelling. She is inactive and uses a walker. She states that she takes chronic pain medicine and has peripheral vascular disease. In the ER, she was noted to be drowsy and a poor historian. The ER record describes mild chest pain, but troponins were normal. ALLERGIES: DILANTIN. MEDICATIONS: See the nurse's list. SOCIAL HISTORY: Smoking, currently less than 1 pack a day. Alcohol, no heavy use described. PREVIOUS SURGERIES: Coronary stents, tubal ligation, a brain shunt after brain aneurysm repair. This was placed in 1998. FAMILY HISTORY: Not available. REVIEW OF SYSTEMS: She describes a small amount of sputum production, but no infectious symptoms. There is a history of hepatitis C, cardiomyopathy with an EF of 30-35%, shortness of breath and weakness for 1-2 days. Hypertension, reflux, paroxysmal atrial fibrillation, hyperlipidemia, rheumatoid arthritis and peripheral neuropathy are mentioned. PHYSICAL EXAMINATION: GENERAL: Well-developed, well-nourished, no acute distress. Alert, cooperative. The patient is oriented, but is a vague historian. She has a hoarse voice. EYES, NOSE, AND THROAT: Otherwise, unremarkable. NECK: Reveals JVD. There are no bruits. Neck is supple, no masses. LUNGS: Diminished breath sounds, no rales or rhonchi. No labored respirations. HEART: Regular rhythm, S4 gallop. No murmurs, rubs or gallops appreciable. ABDOMEN: Soft. Bowel sounds intact. No masses. Minimal discomfort on palpation. EXTREMITIES: No cyanosis, clubbing, edema. Peripheral pulses are intact, but diminished. NEUROLOGIC: Deferred. SKIN: Clear. IMPRESSION: 1. Severe anemia, probably secondary to gastrointestinal blood loss: This is probably the cause of her shortness of breath and weakness. There are no overt signs of heart failure, although the BNP is elevated. Anticoagulation and antiplatelet medications will be held and the GI workup and transfusion are in process. 2. History of coronary artery disease with no chest pain and normal troponins. 3. Chronic obstructive pulmonary disease. 4. Peripheral vascular disease. 5. Hepatitis C. 6. 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 7. Cardiomyopathy with elevated BNP, but no overt signs of congestive heart failure. Monitor for pulmonary edema. 8. Nicotine dependence. 9. Hypertension. 10. Paroxysmal atrial fibrillation. 11. Hyperlipidemia. 12. Rheumatoid arthritis. 13. Peripheral neuropathy. PLAN: As described above. This patient's prognosis is probably guarded. I will review the previous workup by Dr. Saleh in the office. Thank you for this consultation. TID: [id number] RECEIPT: [id number] REENA/AZAEL
[2021-11-19] MEDS ORDERED: POTASSIUM CHLORIDE ER 20 MEQ TAB PO SCH (08:00)
[2021-11-19] MEDS: LISINOPRIL 5 MG TAB PO SCH (09:27)
[2021-11-19] MEDS: PANTOPRAZOLE 40 MG INJ IV SCH ×2 (09:27→22:13)
[2021-11-19] MEDS ORDERED: WATER FOR IRRIG STERILE 1,000 ML BOTTLE ONE (09:33)
[2021-11-19] MEDS ORDERED: WATER FOR IRRIG STERILE 250 ML BOTTLE IR ONE (09:33)
[2021-11-19 10:09] LABS: Eosinophils # (Auto) 0.1 K/mm3 (0.0-0.4); Monocytes # (Auto) 0.4 K/mm3 (0.0-0.8); Monocytes % (Auto) 8.4 % (0.0-7.3)
[2021-11-19] MEDS ORDERED: propofoL 200 MG/20 ML VIAL IV ONE (10:09)
--- NOTE | 2021-11-19 10:20 | Anesthesia Consultation ---
Anesthesia Consult and Med Hx Date of service: 11/19/21 - Airway Anesthetic Teeth Evaluation: Edentulous ROM Head & Neck: Adequate Mental/Hyoid Distance: Adequate Mallampati Class: Class II Intubation Access Assessment: Probably Good - Pulmonary Exam CTA: Yes - Cardiac Exam Cardiac Exam: RRR - Pre-Operative Health Status ASA Pre-Surgery Classification: ASA4 Proposed Anesthetic Plan: MAC - Pulmonary Hx Smoking: Yes (1/2 PPD) Hx Asthma: Yes Hx Respiratory Symptoms: No COPD: Yes Home Oxygen Therapy: No - Cardiovascular System Hx Hypertension: Yes Hx Coronary Artery Disease: Yes (acute on chronic HF this admission; EF 30-35%) Hx Heart Attack/AMI: Yes (6-12 months ago) Hx Cardia Arrhythmia: Yes (a-fib) Hx Pacemaker: No Hx Internal Defibrillator: No Hx Peripheral Vascular Disease: Yes - Central Nervous System Hx Seizures: Yes (remote hx) CVA: No (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
--- NOTE | 2021-11-19 10:20 | Anesthesia Day of Surgery ---
Anesthesia Day of Surgery - Day of Surgery Patient Examined: Yes Patient H&P Reviewed: Yes Patient is NPO: Yes
[2021-11-19] MEDS: SODIUM CHLORIDE 0.9% 1000 ML 1,000 ML IV SCH ×2 (10:23→18:32)
[2021-11-19] MEDS ORDERED: GLUCAGON (HUMAN RECOMBINANT) 1 MG/ML INJ ONE (10:26)
[2021-11-19 10:28] LABS: Basophils % (Auto) 0.7 % (0.0-1.8); Hemoglobin 9.7 gm/dl (10.1-14.3); Lymphocytes # (Auto) 1.1 K/mm3 (1.2-5.4); Lymphocytes % (Auto) 23.7 % (13.4-35.0); Mean Corpuscular HGB Conc 31 % (30-34); Mean Corpuscular Volume 72 fl (79-97)
[2021-11-19] MEDS ORDERED: LIDOCAINE MPF (2%) 20 MG/1 ML VIAL 5 ML ONE (10:29)
[2021-11-19 10:35] LABS: Alanine Aminotransferase 11 units/L (7-56); Albumin 4.5 g/dL (3.9-5); Blood Urea Nitrogen 5 mg/dL (7-17); Calcium 9.4 mg/dL (8.4-10.2); Hemolysis Index 10
--- NOTE | 2021-11-19 10:36 | Operative Report ---
Operative Report Operative Report: Date:11/19/21 Endoscopist: Ihsan Martinez MD (Jenny) Push enteroscopy REPORT PREOPERATIVE DIAGNOSIS:anemia, melena POSTOPERATIVE DIAGNOSIS:duodenal AVM, mild antral erythema ESTIMATED BLOOD LOSS:minimal DESCRIPTION OF PROCEDURE: A high-resolution pediatric colonoscope was passed through the oropharynx, esophagus, stomach, and second portion of duodenum and proximal jejunum. The scope was carefully withdrawn. Retroflexion was performed in the stomach. At the end of the procedure, the scope was cleaned using normal technique. Vital signs monitored continuously throughout. SEDATION: Provided by Anesthesiology Services. COMPLICATIONS: None. FINDINGS: 1. A small 2-3 mm nonbleeding AVM in the distal duodenum found treated with APC cautery but difficult positioning due to bowel contractions. Rest of the small bowel examined appeared normal. No blood seen. 2. Mild antral erythema. 3. Normal retroflexion view of cardia. 4. A 2 cm hiatal hernia. 5. Rest of the esophagus appeared normal. RECOMMENDATIONS: 1. Resume clear liquids. 2. Will plan for colonoscopy tomorrow if patient agreeable. 3. NPO MN. 4. Monitor H/H. Ihsan Matrinez MD (Jenny) [facility]
[2021-11-19 10:37] LABS: Red Cell Distribution Width 21.5 % (13.2-15.2)
[2021-11-19 10:41] LABS: BUN/Creatinine Ratio 10
--- NOTE | 2021-11-19 10:55 | Post Anesthesia Evaluation ---
- Post Anesthesia Evaluation Patient Participated: Yes Airway Patent: Yes Stable Respiratory Function: Yes Nausea/Vomiting: No Temp > 96.8F: Yes Pain Manageable: Yes Adequeate Hydration: Yes Anesthesia Complications: No
--- NOTE | 2021-11-19 11:32 | Progress Note ---
Assessment and Plan - Patient Problems (1) Cardiomyopathy Current Visit: Yes Status: Acute (2) CHF (congestive heart failure), NYHA class III Current Visit: Yes Status: Acute (3) Guaiac positive stools Current Visit: Yes Status: Acute (4) Symptomatic anemia Current Visit: Yes Status: Acute (5) A-fib Current Visit: Yes Status: Chronic Qualifiers: Atrial fibrillation type: persistent (not longstanding) Qualified Code(s): I48.19 - Other persistent atrial fibrillation; I48.1 - Persistent atrial fibrillation (6) COPD (chronic obstructive pulmonary disease) Current Visit: Yes Status: Chronic Qualifiers: COPD type: unspecified COPD Qualified Code(s): J44.9 - Chronic obstructive pulmonary disease, unspecified (7) Coronary artery disease Current Visit: Yes Status: Chronic Qualifiers: Coronary Disease-Associated Artery/Lesion type: [place] artery [place] vs. transplanted heart: [place] heart (8) Hypertension Current Visit: Yes Status: Chronic Qualifiers: Hypertension type: primary hypertension Qualified Code(s): I10 - Essential (primary) hypertension Subjective Date of service: 11/19/21 Interval history: NO CV C/O Objective Vital Signs Temp Pulse Resp BP BP Pulse Ox 11/19/21 09:47 98.1 F 61 11 L 134/81 99 11/19/21 08:24 98.0 F 65 18 130/69 99 11/19/21 03:59 97.9 F 68 16 137/94 97 11/19/21 03:25 69 11/19/21 00:00 67 11/18/21 23:14 98.5 F 68 16 132/83 98 11/18/21 20:17 98.2 F 74 18 119/67 97 11/18/21 20:00 99 11/18/21 19:37 17 11/18/21 19:30 68 11/18/21 19:07 20 11/18/21 19:06 77 11/18/21 18:45 9839 F H 78 20 126/68 11/18/21 17:30 110/66 11/18/21 17:21 120/63 11/18/21 16:02 129/67 11/18/21 15:00 120/70 11/18/21 14:45 125/58 11/18/21 14:30 118/58 11/18/21 14:20 122/55 11/18/21 14:19 119/59 11/18/21 14:07 97.9 F 72 20 122/55 96 11/18/21 12:45 98.1 F 73 20 119/70 96 11/18/21 12:20 98.3 F 73 20 118/66 96 11/18/21 12:07 98.3 F 73 20 131/66 96 11/18/21 12:00 72 - Physical Examination General: No Apparent Distress HEENT: Positive: PERRL, Other (HOARSE) Neck: Positive: neck supple Cardiac: Positive: Reg Rate and Rhythm Lungs: Positive: clear to auscultation, Decreased Breath Sounds Abdomen: Positive: Unremarkable Extremities: Present: normal - Labs and Meds Cardiac Enzymes 11/19/21 Range/Units 09:40 AST 20 (5-40) units/L CBC 11/18/21 11/19/21 Range/Units 22:15 09:40 WBC 4.8 (4.5-11.0) K/mm3 RBC 4.30 (3.65-5.03) M/mm3 Hgb 9.3 L D 9.7 L (10.1-14.3) gm/dl Hct 29.3 L D 31.0 (30.3-42.9) % Lymph # (Auto) 1.1 L (1.2-5.4) K/mm3 [place] # (Auto) 0.4 (0.0-0.8) K/mm3 Eos # (Auto) 0.1 (0.0-0.4) K/mm3 Baso # (Auto) 0.0 (0.0-0.1) K/mm3 Comprehensive Metabolic Panel 11/18/21 11/19/21 Range/Units 22:15 09:40 Sodium 141 138 (137-145) mmol/L Potassium 3.5 L 3.5 L (3.6-5.0) mmol/L Chloride 107.8 H 106.7 (98-107) mmol/L Carbon Dioxide 22 22 (22-30) mmol/L BUN 7 5 L (7-17) mg/dL Creatinine 0.6 0.5 L (0.6-1.2) mg/dL Glucose 107 H 103 H (65-100) mg/dL Calcium 9.3 9.4 (8.4-10.2) mg/dL AST 20 (5-40) units/L ALT 11 (7-56) units/L Alkaline Phosphatase 82 (35-129) units/L Total Protein 7.1 (6.3-8.2) g/dL Albumin 4.5 (3.9-5) g/dL
[2021-11-19 11:44] LABS: Platelet Count 184 K/mm3 (140-440)
--- NOTE | 2021-11-19 11:45 | Progress Note ---
Assessment and Plan Assessment and plan: #Acute symptomatic anemiaresolved Hemoglobin 5.1--> 9.3. Transfused 2 unit packed RBC total. Trending H&H every 12 hours. Currently holding anticoagulation (Eliquis 5 mg every 12 hours) and antihypertensives. Unable to perform iron study + TIBC as the patient is status post transfusion. Unremarkable YUMIKO. Gastroenterology consulted; appreciate recs. Upper endoscopy performed on 11/19/2021 revealing 2-3 mm nonbleeding AVM in distal duodenum that was treated with APC cautery, mild antral erythema, 2 cm hiatal hernia. Pending possible colonoscopy tomorrow (11/20/2022). Restarting clear liquid diet and will be n.p.o. at midnight. Continue IV pantoprazole 40 mg every 12 hours. Continue IV maintenance fluids. #Acute on chronic systolic heart failure - Continue CHF exacerbation protocol: Telemetry, Strict I/O, monitor urine output every shift, daily weights, afterload reduction, low-sodium diet, and fluid restriction of approximately 1.5 mL/day - Supplemental oxygen: Room air - ProBNP on admission: 1173 - Cardiology consulted; appreciate recs. Holding on anticoagulation given symptomatic anemia. - TTE (09/23/2021) revealing EF 30-35% with mildly dilated LV, severely decreased LV systolic function, borderline concentric LVH - Continue to monitor #Hypertension #Hyperlipidemia #History of coronary artery disease - home medications: Lisinopril 2.5 mg daily, Coreg 3.125 mg twice daily, atorvastatin 80 mg daily, Plavix 75 mg daily, and Imdur 30 mg daily Holding home Plavix 75 mg daily and Imdur 30 mg daily. Continue home atorvastatin 80 mg daily. - SBP goal <160 and DBP goal <90 while inpatient - continue to monitor #Peripheral neuropathy Holding home gabapentin and Cymbalta. Can restart prior to discharge. #Chronic COPDstable Continue DuoNebs and albuterol nebs as needed #Chronic atrial fibrillation on anticoagulation Holding Eliquis 5 mg twice daily in the setting of symptomatic anemia. Hold ing Coreg 3.125 mg twice daily. Will restart prior to discharge. Cardiology consulted regarding anticoagulation; pending recs #Tobacco dependence #Tobacco/Smoking cessation counseling - Counseled patient about the importance of smoking cessation and the possible sequelae as a result of continued tobacco consumption. The patient expresses understanding. Continue nicotine patch. -Time: +15 mins #Advanced care planning -Disease education conducted, care plan discussed, diagnoses discussed, prognosis discussed, and patient acknowledges understanding with care plan -Time: +30 min Disposition Plan: Continue medical management Total Time Spent with Patient (Minutes): 45 min History Interval history: No acute events overnight. Hospitalist Physical - Constitutional Vitals: Temp Pulse Resp BP Pulse Ox 98.6 F 59 L 18 126/63 97 11/19/21 11:37 11/19/21 11:37 11/19/21 11:37 11/19/21 11:37 11/19/21 11:37 General appearance: Present: no acute distress, well-nourished, other (Sleeping comfortably in bed) - EENT Eyes: Present: PERRL, EOM intact ENT: hearing intact, clear oral mucosa, dentition normal - Neck Neck: Present: supple, normal ROM - Respiratory Respiratory effort: normal Respiratory: bilateral: CTA - Cardiovascular Rhythm: regular Heart Sounds: Present: S1 & S2 - Extremities Extremities: no ischemia, pulses intact, pulses symmetrical, No edema, normal temperature, normal color Peripheral Pulses: within normal limits - Abdominal General gastrointestinal: soft, non-tender, non-distended, normal bowel sounds - Integumentary Integumentary: Present: clear, warm, dry - Psychiatric Psychiatric: appropriate mood/affect, cooperative - Neurologic Neurologic: CNII-XII intact - Allied Health Allied health notes reviewed: nursing HEART Score - HEART Score Age: > 65 Risk factors: > 3 risk factors or hx of atherosclerotic disease Troponin: Troponin T 0.011 ng/mL (0.00-0.029) 11/17/21 15:00 Troponin: < normal limit - Critical Actions Critical Actions: 4-6 pts:12-16.6% risk of adverse cardiac event. Should be admitted Results - Labs CBC & Chem 7: 11/19/21 09:40 11/19/21 09:40 Labs: Laboratory Last Values WBC 4.8 K/mm3 (4.5-11.0) 11/19/21 09:40 RBC 4.30 M/mm3 (3.65-5.03) 11/19/21 09:40 Hgb 9.7 gm/dl (10.1-14.3) L 11/19/21 09:40 Hct 31.0 % (30.3-42.9) 11/19/21 09:40 MCV 72 fl (79-97) L 11/19/21 09:40 MCH 23 pg (28-32) L 11/19/21 09:40 MCHC 31 % (30-34) 11/19/21 09:40 RDW 21.5 % (13.2-15.2) H 11/19/21 09:40 Plt Count 196 K/mm3 (140-440) 11/17/21 15:00 Lymph % (Auto) 23.7 % (13.4-35.0) 11/19/21 09:40 [place] % (Auto) 8.4 % (0.0-7.3) H 11/19/21 09:40 Eos % (Auto) 3.0 % (0.0-4.3) 11/19/21 09:40 Baso % (Auto) 0.7 % (0.0-1.8) 11/19/21 09:40 Lymph # (Auto) 1.1 K/mm3 (1.2-5.4) L 11/19/21 09:40 [place] # (Auto) 0.4 K/mm3 (0.0-0.8) 11/19/21 09:40 Eos # (Auto) 0.1 K/mm3 (0.0-0.4) 11/19/21 09:40 Baso # (Auto) 0.0 K/mm3 (0.0-0.1) 11/19/21 09:40 Seg Neutrophils % 64.0 % (40.0-70.0) 11/19/21 09:40 Seg Neutrophils # 3.2 K/mm3 (1.8-7.7) 11/19/21 09:40 PT 16.2 Sec. (12.2-14.9) H 11/17/21 15:00 INR 1.16 (0.87-1.13) H 11/17/21 15:00 APTT 29.7 Sec. (24.2-36.6) 11/17/21 15:00 ABG pH 7.395 pH Units (7.350-7.450) 11/17/21 14:15 ABG pCO2 44.1 mm Hg 11/17/21 14:15 ABG pO2 72.3 mm Hg (80.0-90.0) L 11/17/21 14:15 ABG HCO3 26.4 mmol/L (20.0-26.0) H 11/17/21 14:15 ABG O2 Saturation 97.3 % (95.0-99.0) 11/17/21 14:15 ABG O2 Content 5.2 (0.0-44) 11/17/21 14:15 ABG Base Excess 1.5 mmol/L (-2.0-3.0) 11/17/21 14:15 ABG Hemoglobin 5.0 gm/dl (12.0-16.0) L 11/17/21 14:15 ABG Carboxyhemoglobin 7.6 % (0.0-5.0) H 11/17/21 14:15 ABG Methemoglobin 0.3 % (0.0-1.5) 11/17/21 14:15 Oxyhemoglobin 89.7 % (95.0-99.0) L 11/17/21 14:15 FiO2 21 % 11/17/21 14:15 Sodium 138 mmol/L (137-145) 11/19/21 09:40 Potassium 3.5 mmol/L (3.6-5.0) L 11/19/21 09:40 Chloride 106.7 mmol/L (98-107) 11/19/21 09:40 Carbon Dioxide 22 mmol/L (22-30) 11/19/21 09:40 Anion Gap 13 mmol/L 11/19/21 09:40 BUN 5 mg/dL (7-17) L 11/19/21 09:40 Creatinine 0.5 mg/dL (0.6-1.2) L 11/19/21 09:40 Estimated GFR > 60 ml/min 11/19/21 09:40 BUN/Creatinine Ratio 10 % 11/19/21 09:40 Glucose 103 mg/dL (65-100) H 11/19/21 09:40 Calcium 9.4 mg/dL (8.4-10.2) 11/19/21 09:40 Magnesium 2.10 mg/dL (1.7-2.3) 11/17/21 15:00 Total Bilirubin 0.70 mg/dL (0.1-1.2) 11/19/21 09:40 AST 20 units/L (5-40) 11/19/21 09:40 ALT 11 units/L (7-56) 11/19/21 09:40 Alkaline Phosphatase 82 units/L (35-129) 11/19/21 09:40 Ammonia 25.0 umol/L (25-60) 11/17/21 15:00 Total Creatine Kinase 296 units/L (30-135) H 11/17/21 15:00 CK-MB (CK-2) 4.7 ng/mL (0.0-4.0) H 11/17/21 15:00 CK-MB (CK-2) Rel Index 1.5 (0-4) 11/17/21 15:00 Troponin T 0.011 ng/mL (0.00-0.029) 11/17/21 15:00 NT-Pro-B Natriuret Pep 1173 pg/mL (0-900) H 11/17/21 15:00 Total Protein 7.1 g/dL (6.3-8.2) 11/19/21 09:40 Albumin 4.5 g/dL (3.9-5) 11/19/21 09:40 Albumin/Globulin Ratio 1.7 % 11/19/21 09:40 Plasma/Serum Alcohol < 0.01 % (0-0.07) 11/17/21 15:00 Blood Type A POSITIVE 11/17/21 15:00 Antibody Screen Positive 11/17/21 15:00 Antibody Identification Anti-E 11/17/21 15:00 Crossmatch See Detail 11/17/21 15:00 Masters/IV: Voiding Method Toilet Active Medications - Current Medications Current Medications: Generic Name Dose Route Start Last Admin Trade Name Freq PRN Reason Stop Dose Admin Acetaminophen 650 mg 11/18/21 00:36 Acetaminophen 325 Mg Tab PO Q4H PRN Pain MILD(1-3)/Fever >100.5/GARCIA Clonidine HCl 0.2 mg 11/18/21 06:00 11/18/21 19:06 Clonidine Tts 0.2 Mg/24 Hr Patch TD 0.2 mg Nick LENY Administration Hydromorphone HCl 0.5 mg 11/18/21 00:36 11/19/21 08:40 Hydromorphone 0.5 Mg/0.5 Ml Inj IV 0.5 mg Q3H PRN Administration Pain , Severe (7-10) Sodium Chloride 1,000 mls @ 50 mls/hr 11/19/21 09:30 Nacl 0.9% 1000 Ml IV DIRECT LENY Lisinopril 2.5 mg 11/18/21 10:00 11/19/21 09:27 Lisinopril 5 Mg Tab PO 2.5 mg QDAY LENY Administration Morphine Sulfate 2 mg 11/18/21 00:36 11/18/21 19:07 Morphine 2 Mg/1 Ml Inj IV 2 mg Q4H PRN Administration Pain, Moderate (4-6) Ondansetron HCl 4 mg 11/18/21 00:36 Ondansetron 4 Mg/2 Ml Inj IV Q8H PRN Nausea And Vomiting Pantoprazole Sodium 40 mg 11/18/21 01:00 11/19/21 09:27 Pantoprazole 40 Mg Inj IV 40 mg BID LENY Administration Polyethylene Glycol/Electrolytes 4,000 ml 11/19/21 17:00 Polyethylene Glycol/Elect Soln 4000 Ml PO ONCE@1700 LENY Potassium Chloride 40 meq 11/19/21 08:00 11/19/21 08:40 Potassium Chloride Er 20 Meq Tab PO 11/19/21 12:00 40 meq ONCE@0800 LENY Administration Sodium Chloride 10 ml 11/18/21 10:00 11/19/21 09:27 Sodium Chloride 0.9% 10 Ml Flush Syringe IV 10 ml BID LENY Administration Sodium Chloride 10 ml 11/18/21 00:36 Sodium Chloride 0.9% 10 Ml Flush Syringe IV PRN PRN LINE FLUSH
[2021-11-19] MEDS ORDERED: POLYETHYLENE GLYCOL/ELECT SOLN 4000 ML PO SCH (17:00)
[2021-11-19] MEDS: MORPHINE 2 MG/1 ML INJ IV PRN (18:24)
[2021-11-20] MEDS: MORPHINE 2 MG/1 ML INJ IV PRN ×2 (04:07→10:05)
[2021-11-20 06:12] LABS: Hematocrit 29.4 % (30.3-42.9); Hemoglobin 9.2 gm/dl (10.1-14.3)
[2021-11-20 06:33] LABS: Blood Urea Nitrogen 5 mg/dL (7-17); Calcium 9.2 mg/dL (8.4-10.2); Hemolysis Index 2
[2021-11-20 06:34] LABS: BUN/Creatinine Ratio 10
[2021-11-20] MEDS ORDERED: POTASSIUM CHLORIDE ER 20 MEQ TAB PO SCH (08:30)
[2021-11-20] MEDS: PANTOPRAZOLE 40 MG INJ IV SCH (10:10)
[2021-11-20] MEDS ORDERED: EPINEPHrine 1 MG/10 ML SYRINGE ONE (11:19)
--- NOTE | 2021-11-20 11:42 | Anesthesia Day of Surgery ---
Anesthesia Day of Surgery - Day of Surgery Patient Examined: Yes Patient H&P Reviewed: Yes Patient is NPO: Yes
--- NOTE | 2021-11-20 11:43 | Anesthesia Consultation ---
Anesthesia Consult and Med Hx Date of service: 11/20/21 - Airway Anesthetic Teeth Evaluation: Edentulous ROM Head & Neck: Adequate Mental/Hyoid Distance: Adequate Mallampati Class: Class II Intubation Access Assessment: Probably Good - Pulmonary Exam CTA: Yes - Cardiac Exam Cardiac Exam: RRR - Pre-Operative Health Status ASA Pre-Surgery Classification: ASA4 Proposed Anesthetic Plan: MAC - Pulmonary Hx Smoking: Yes (1/2 PPD) Hx Asthma: Yes Hx Respiratory Symptoms: No COPD: Yes Home Oxygen Therapy: No Hx Pneumonia: No - Cardiovascular System Hx Hypertension: Yes Hx Coronary Artery Disease: Yes (acute on chronic HF this admission; EF 30-35%) Hx Heart Attack/AMI: Yes (6-12 months ago) Hx Cardia Arrhythmia: Yes (a-fib) Hx Pacemaker: No Hx Internal Defibrillator: No Hx Peripheral Vascular Disease: Yes - Central Nervous System Hx Seizures: Yes (remote hx) 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
[2021-11-20] MEDS ORDERED: LIDOCAINE MPF (2%) 20 MG/1 ML VIAL 5 ML ONE (11:47)
[2021-11-20] MEDS ORDERED: propofoL 200 MG/20 ML VIAL IV ONE (11:48)
[2021-11-20] MEDS ORDERED: fentaNYL 100 MCG/2 ML INJ ONE (11:50)
--- NOTE | 2021-11-20 12:44 | Operative Report ---
Operative Report Operative Report: Colonoscopy: Procedure: Colonoscopy Endoscopist: Ihsan Martinez MD Pre-operative Diagnosis/Indications:iron deficiency anemia Post-operative Diagnosis:colon polyps, internal hemorrhoids History:See consult note Sedation:MAC Procedure Details: Indications, risks, and benefits were explained and consent was obtained. Pt was placed in the left lateral decubitus position and sedated. Video colonoscope was inserted thru the anus after digital exam, and advanced to the cecum withoutdifficulty. Scope was then gradually withdrawn with close inspection of the mucosa. Prep was poor. Findings: 1. No bleeding seen throughout the exam. 2. Tortuous colon with looping. 3. A 4 mm sessile polyp in the rectum removed with cold biopsy forcep. 4. Mild internal hemorrhoids. 5. Small lesions may have been missed due to prep quality. Specimens:Colon polyp Complications:None; patient tolerated the procedure well Impression: 1. Poor prep quality. 2. No bleeding source identified. Suspect anemia due to potential small bowel pathology but no active bleeding at this time. 3. A small rectal polyp removed. 4. Mild internal hemorrhoids. Recommendations: 1. Resume regular diet. 2. Monitor H/H. 3. Ok to resume eliquis if indicated. Discuss risks and benefits given recurrent anemia requiring blood transfusion. 4. Recommend pillcam video capsule as outpatient. 5. Will sign off. Please call as needed. Ihsan Hyman (Amaya Martinez MD [facility]
--- NOTE | 2021-11-20 12:49 | Progress Note ---
Assessment and Plan 1. Acute symptomatic anemia status post packed red blood cell transfusion 2. Chronic atrial fibrillation 3. Dilated cardiomyopathy moderate to severe global hypokinesis left ventricular ejection fraction 30 to 35% 4. Coronary artery disease 5. Hyperlipidemia 6. Systemic arterial hypertension 7. Chronic obstructive pulmonary disease 8. Peripheral neuropathy. Plan Cardiac vazquez stable Eliquis on hold GI work-up in progress continue other cardiac medication. Subjective Date of service: 11/20/21 Interval history: No cardiac symptoms Objective Vital Signs Temp Pulse Resp BP BP Pulse Ox 11/20/21 11:30 98.6 F 61 16 141/74 98 11/20/21 08:29 98.0 F 81 16 141/72 98 11/20/21 08:00 97 11/20/21 05:50 91 H 18 134/72 98 11/20/21 03:00 64 11/19/21 22:46 97.8 F 11/19/21 21:15 63 97 11/19/21 21:14 65 18 129/77 97 11/19/21 20:00 97 11/19/21 15:35 98.0 F 14 L 14 109/61 96 - Physical Examination General: Appears Well, No Apparent Distress HEENT: Positive: PERRL, Other (HOARSE). Negative: Normocephaly Neck: Positive: neck supple, trachea midline. Negative: JVD/HJR Cardiac: Positive: Regular Rate, S1/S2, PMI, Laterally Displaced. Negative: S3 Lungs: Positive: clear to auscultation, No Wheeze, Rales, Rhonchi Neuro: Positive: Grossly Intact. Negative: Negative Rhomberg, No Lateralizing Findings Abdomen: Positive: Unremarkable, Soft. Negative: Active Bowel Sounds Extremities: Present: normal. Absent: edema - Labs and Meds CBC 11/20/21 Range/Units 05:06 Hgb 9.2 L (10.1-14.3) gm/dl Hct 29.4 L (30.3-42.9) % Comprehensive Metabolic Panel 11/20/21 Range/Units 05:06 Sodium 140 (137-145) mmol/L Potassium 3.4 L (3.6-5.0) mmol/L Chloride 107.7 H (98-107) mmol/L Carbon Dioxide 21 L (22-30) mmol/L BUN 5 L (7-17) mg/dL Creatinine 0.5 L (0.6-1.2) mg/dL Glucose 93 (65-100) mg/dL Calcium 9.2 (8.4-10.2) mg/dL
[2021-11-20 13:50] VITALS: BP 126/71
--- NOTE | 2021-11-20 13:54 | Discharge Summary ---
Providers - Providers Date of Admission: 11/17/21 17:34 Date of discharge: 11/20/21 Attending physician: DENITA ALBERTS MD 11/17/21 18:07 Consult to Physician [CONS] Urgent Comment: Consulting Provider: ALICJA GILLILAND Physician Instructions: Reason For Exam: anemia, gauic positive stool 11/18/21 11:00 Consult to Physician [CONS] Routine Comment: Consulting Provider: SARAH DENNY Physician Instructions: Reason For Exam: Anticoagulation + afib + symptomatic anemia Primary care physician: DIMITRIOS ZIMMER Hospitalization Reason for admission: symptomatic anemia Condition: Stable Hospital course: 66-year-old female with history of COPD, coronary artery disease, PVD and hepatitis who presented to the emergency room with decreased consciousness. She was found to have a hemoglobin hematocrit of 5.1/17.1. Stool occult was positive. GI was consulted for upper GI bleed. Anticoagulation was stopped. CT of the head showed no acute abnormality. She received 3 units of packed red cells and her hemoglobin improved to 9.2. EGD showed a 2 to 3 mm nonbleeding AVM in the distal duodenum that were cauterized, and showed erythema and a 2 cm hiatal hernia. Colonoscopy revealed a 4 mm sessile polyp in the rectum was removed and mild internal hemorrhoids. No definitive cause of bleeding was found. Decision was made to restart the patient on Eliquis at discharge. She was instructed to follow-up with gastroenterology for outpatient pill endoscopy. Disposition: HOME HEALTH CARE SERVICE Final Discharge Diagnosis (Prints w/discharge instructions): Acute symptomatic anemia. Acute on chronic systolic heart failure. Hypertension. Hyperlipidemia. History of coronary disease. Peripheral neuropathy. COPD. Chronic atrial fibrillation on anticoagulation. Tobacco dependence Time spent for discharge: 30 minutes Core Measure Documentation - Palliative Care Palliative Care/ Comfort Measures: Not Applicable - Core Measures Any of the following diagnoses?: history only Exam - Physical Exam Narrative exam: GENERAL: Thin elderly woman. Walking around the room in no acute distress. HEENT: Normocephalic. Atraumatic. NECK: Supple. CHEST/LUNGS: CTAB on room air HEART/CARDIOVASCULAR: RRR. No murmur, rubs or gallops appreciated. ABDOMEN: +BS. NT/ND. SKIN: No rashes noted. NEURO: No focal motor deficit. Follows all commands and is ambulatory. MUSCULOSKELETAL: No joint effusion EXTREMITIES: No cyanosis, clubbing or edema. PSYCH: Cooperative. 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 Please schedule an appointment with the tire duster for an outpatient study to evaluate for bleeding. You can restart taking her Eliquis as it was prescribed to you. If you notice any more blood in your stool please discontinue this medication and notify your primary care provider. Follow up with: DIMITRIOS ZIMMER MD [Primary Care Provider] - 3-5 Days MINALICJA MD [Staff Physician] - 14 Days
[2021-11-20] MEDS: LISINOPRIL 5 MG TAB PO SCH (14:34)
[2021-11-20] MEDS ORDERED: POTASSIUM CHLORIDE ER 20 MEQ TAB PO NR (14:35)
== END 2021-11-20 16:30 | disposition home health service (06) | DRG 393 ==
LOC: ED 12:41 → 4A 17:34
PROVIDERS: ADMIT Internal Medicine; ATTEND Student in an Organized Health Care Education/Training Program
PROC: 30233N1 Transfusion of Nonautologous Red Blood Cells into Peripheral Vein, Percutaneous Approach (ICD-10-PCS; 2021-11-17)
PROC: 4A033R1 Measurement of Arterial Saturation, Peripheral, Percutaneous Approach (ICD-10-PCS; 2021-11-17)
PROC: 0DJD8ZZ Inspection of Lower Intestinal Tract, Via Natural or Artificial Opening Endoscopic (ICD-10-PCS; principal; 2021-11-19)
PROC: 0D598ZZ Destruction of Duodenum, Via Natural or Artificial Opening Endoscopic (ICD-10-PCS; 2021-11-19)
PROC: 0DBP8ZZ Excision of Rectum, Via Natural or Artificial Opening Endoscopic (ICD-10-PCS; 2021-11-20)
DX: K63.5 Polyp of colon (principal); I50.23 Acute on chronic systolic (congestive) heart failure; Q27.39 Arteriovenous malformation, other site; I11.0 Hypertensive heart disease with heart failure; I48.19 Other persistent atrial fibrillation; G89.29 Other chronic pain; I73.9 Peripheral vascular disease, unspecified; D64.9 Anemia, unspecified; K64.8 Other hemorrhoids; G62.9 Polyneuropathy, unspecified; I25.10 Atherosclerotic heart disease of native coronary artery without angina pectoris; J44.9 Chronic obstructive pulmonary disease, unspecified; E78.5 Hyperlipidemia, unspecified; F17.200 Nicotine dependence, unspecified, uncomplicated; M06.9 Rheumatoid arthritis, unspecified; K44.9 Diaphragmatic hernia without obstruction or gangrene; I25.2 Old myocardial infarction; Z79.01 Long term (current) use of anticoagulants
CPT/HCPCS: 36415; 70450; 71045; 80048; 80053; 80320; 82140; 82271; 82550; 82553; 82803; 83735; 83880; 84484; 85014; 85018; 85025; 85610; 85730; 86850; 86870; 86900; 86901; 86922; 88305; 93005; G0378; C9113; G0480; J0171; J1610; J2270; J2704; J3010; J7030; P9016

== ENCOUNTER 2022-01-25 13:04 | Emergency (ER) | payer MEDICAID ==
[2022-01-25 13:16] VITALS: BP 122/80
[2022-01-25] MEDS ORDERED: MORPHINE 4 MG/1 ML INJ IM ONE (15:52)
--- NOTE | 2022-01-25 15:58 | Emergency Department Report ---
ED General Adult HPI - General Chief complaint: Extremity Injury, Lower Stated complaint: LEG PAIN/ [id number] Source: EMS Mode of arrival: Stretcher Limitations: Physical Limitation - History of Present Illness Initial comments: 66-year-old female with multiple medical history including hypertension, CVA, CHF, [place], arthritis, patient of the emergency department presenting with chronic pain of the lower extremities. No new trauma or injury, pain is constant has been worse for the last 1 month has run out of pain management and "she has been fired from pain management clinic". Otherwise his symptoms are without weakness dizziness headache chest pain shortness of breath fever. Severity scale (0 -10): 6 - Related Data Home Medications Medication Instructions Recorded Confirmed Last Taken ALBUTEROL NEB's [Proventil 0.083% 2.5 mg IH TID PRN 09/22/21 09/25/21 Unknown NEBS] Apixaban [Eliquis] 5 mg PO BID 09/22/21 09/25/21 Unknown Atorvastatin Calcium [Lipitor] 80 mg PO QHS 09/22/21 09/25/21 11/16/21 20:45 Ipratropium/Albuterol Sulfate 1 ampul IH Q6HR PRN 09/22/21 09/25/21 Unknown [DUONEB *Not for PRN Use*] Pantoprazole Sodium 40 mg PO DAILY 09/22/21 09/25/21 Unknown DULoxetine [Cymbalta] 30 mg PO QDAY 09/25/21 09/25/21 Unknown Lisinopril [Zestril TAB] 2.5 mg PO QDAY 09/25/21 11/18/21 11/16/21 09:00 Previous Rx's Medication Instructions Recorded Last Taken Type Clopidogrel [Plavix] 75 mg PO QDAY #30 09/27/21 Unknown Rx Isosorb Dinit/Hydralazine [Bidil 1 each PO Q8HR #90 tablet 09/27/21 Unknown Rx 20/37.5MG] carvediloL [Coreg] 3.125 mg PO BID #60 tablet 09/27/21 11/16/21 21:00 Rx Gabapentin [Neurontin] 800 mg PO TID #60 01/25/22 Unknown Rx traMADoL [Ultram 50 MG tab] 50 mg PO Q6HR PRN #10 tablet 01/25/22 Unknown Rx Allergies Allergy/AdvReac Type Severity Reaction Status Date / Time phenytoin sodium Allergy Hives Verified 01/25/22 13:15 [From Dilantin] phenytoin sodium extended Allergy Hives Verified 01/25/22 13:15 [From Dilantin] ED Review of Systems ROS: Stated complaint: LEG PAIN/ [id number] Other details as noted in HPI Comment: All other systems reviewed and negative Constitutional: no symptoms reported ENT: as per HPI Respiratory: denies: cough, orthopnea Cardiovascular: denies: chest pain, palpitations, dyspnea on exertion Endocrine: denies: see HPI, intolerance to cold, intolerance to heat Gastrointestinal: denies: abdominal pain, nausea, vomiting Genitourinary: as per HPI. denies: urgency, dysuria Musculoskeletal: back pain, arthralgia. denies: joint swelling, myalgia Skin: denies: lesions Neurological: numbness. 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 WAITER/WAITRESS DINING [employer] shunt - Social History Smoking Status: Current Every Day Smoker - Medications Home Medications: Home Medications Medication Instructions Recorded Confirmed Last Taken Type ALBUTEROL NEB's [Proventil 0.083% 2.5 mg IH TID PRN 09/22/21 09/25/21 Unknown History NEBS] Apixaban [Eliquis] 5 mg PO BID 09/22/21 09/25/21 Unknown History Atorvastatin Calcium [Lipitor] 80 mg PO QHS 09/22/21 09/25/21 11/16/21 20:45 History Ipratropium/Albuterol Sulfate 1 ampul IH Q6HR PRN 09/22/21 09/25/21 Unknown History [DUONEB *Not for PRN Use*] Pantoprazole Sodium 40 mg PO DAILY 09/22/21 09/25/21 Unknown History DULoxetine [Cymbalta] 30 mg PO QDAY 09/25/21 09/25/21 Unknown History Lisinopril [Zestril TAB] 2.5 mg PO QDAY 09/25/21 11/18/21 11/16/21 09:00 History Clopidogrel [Plavix] 75 mg PO QDAY #30 09/27/21 Unknown Rx Isosorb Dinit/Hydralazine [Bidil 1 each PO Q8HR #90 tablet 09/27/21 Unknown Rx 20/37.5MG] carvediloL [Coreg] 3.125 mg PO BID #60 tablet 09/27/21 11/18/21 11/16/21 21:00 Rx Gabapentin [Neurontin] 800 mg PO TID #60 01/25/22 Unknown Rx traMADoL [Ultram 50 MG tab] 50 mg PO Q6HR PRN #10 tablet 01/25/22 Unknown Rx ED Physical Exam - General Limitations: Physical Limitation General appearance: alert, in no apparent distress, other (Slender nontoxic- appearing female, sitting in her walker and rolling his self around the emergency department for) - Head Head exam: Present: atraumatic - Eye Eye exam: Present: normal appearance - ENT ENT exam: Present: normal exam, normal orophraynx - Neck Neck exam: Present: normal inspection. Absent: tenderness - Respiratory Respiratory exam: Present: normal lung sounds bilaterally. Absent: respiratory distress, wheezes - Cardiovascular Cardiovascular Exam: Present: regular rate - GI/Abdominal GI/Abdominal exam: Present: soft. Absent: tenderness - Extremities Exam Extremities exam: Present: normal inspection, full ROM. Absent: tenderness, pedal edema, joint swelling - Back Exam Back exam: Present: normal inspection, full ROM, tenderness, paraspinal ten derness - Neurological Exam Neurological exam: Present: alert, oriented X3 - Psychiatric Psychiatric exam: Present: normal affect, normal mood ED Course Vital Signs 01/25/22 13:12 Temperature 97.5 F L Pulse Rate 78 Respiratory 14 Rate Blood Pressure 122/80 [Right] O2 Sat by Pulse 98 Oximetry ED Medical Decision Making - Medical Decision Making Acute on chronic leg pain back pain No new findings, stable vital signs, pain addressed the emergency department with referral to PCP/pain management. Rx for gabapentin refill, 10 tablets of some tramadol, with follow-up WITH pain management Critical care attestation.: If time is entered above; I have spent that time in minutes in the direct care of this critically ill patient, excluding procedure time. ED Disposition Clinical Impression: Rheumatoid arthritis, Chronic pain, Peripheral neuropathy Disposition: HOME / SELF CARE / HOMELESS Is pt being admited?: No Does the pt Need Aspirin: No Condition: Stable Instructions: Peripheral Neuropathy, Opioid Pain Medicine Management, Pain Medicine Instructions, [id number] Prescriptions: Gabapentin [Neurontin] 800 mg PO TID #60 traMADoL [Ultram 50 MG tab] 50 mg PO Q6HR PRN #10 tablet PRN Reason: Pain Referrals: PRIMARY CARE, [Primary Care Provider] - 3-5 Days MICHAEL ASHLEY MD [Staff Physician] - 3-5 Days
== END 2022-01-25 16:22 | disposition home or self-care (01) ==
LOC: ED 13:04
DX: M06.9 Rheumatoid arthritis, unspecified (principal); G89.29 Other chronic pain; G62.9 Polyneuropathy, unspecified; I21.9 Acute myocardial infarction, unspecified; I11.0 Hypertensive heart disease with heart failure; I50.9 Heart failure, unspecified; M19.90 Unspecified osteoarthritis, unspecified site; R56.9 Unspecified convulsions; J44.1 Chronic obstructive pulmonary disease with (acute) exacerbation; Z98.890 Other specified postprocedural states; Z91.09 Other allergy status, other than to drugs and biological substances
CPT/HCPCS: 96372; 99283; J2270

== ENCOUNTER 2022-02-05 20:47 | Emergency (ER) | payer MEDICAID ==
[2022-02-05 21:07] VITALS: BP 95/54
== END 2022-02-06 14:03 | disposition left against medical advice (07) ==
LOC: ED 20:47
DX: M79.10 Myalgia, unspecified site (principal); Z53.21 Procedure and treatment not carried out due to patient leaving prior to being seen by health care provider

== ENCOUNTER 2022-02-06 01:31 | Emergency (ER) | payer MEDICAID ==
[2022-02-06 02:05] VITALS: BP 108/64
== END 2022-02-06 19:00 | disposition left against medical advice (07) ==
LOC: ED 01:31
DX: M79.18 Myalgia, other site (principal); Z53.21 Procedure and treatment not carried out due to patient leaving prior to being seen by health care provider